=== PATIENT | female | born 1985 | race Caucasian/White ===

== ENCOUNTER 2020-05-23 07:37 | Outpatient (REF) | payer OTHER, MEDICAID, SELFPAY ==
[2020-05-25 05:53] LABS: COVID-19 Test Negative (Negative)
== END 2020-05-23 07:38 | disposition home or self-care (01) ==
LOC: HO.LAB 07:37
PROVIDERS: Visit Provider Internal Medicine
DX: Z20.828 Contact with and (suspected) exposure to other viral communicable diseases (principal)
CPT/HCPCS: 87635; C9803

== ENCOUNTER 2020-06-04 12:28 | Outpatient (REF) | payer OTHER, SELFPAY ==
[2020-06-04 13:15] LABS: COVID-19 Test Negative (Negative)
== END 2020-06-04 12:29 | disposition home or self-care (01) ==
LOC: HO.EMPCOV 12:28
PROVIDERS: PCP Nurse Practitioner Family; Visit Provider Internal Medicine
DX: Z20.828 Contact with and (suspected) exposure to other viral communicable diseases (principal)
CPT/HCPCS: 87635; C9803

== ENCOUNTER 2020-06-15 09:26 | Outpatient (REF) | payer OTHER, SELFPAY ==
[2020-06-15 10:08] LABS: COVID-19 Test Negative (Negative)
== END 2020-06-15 09:27 | disposition home or self-care (01) ==
LOC: HO.EMPCOV 09:26
PROVIDERS: Visit Provider Internal Medicine
DX: Z20.828 Contact with and (suspected) exposure to other viral communicable diseases (principal)
CPT/HCPCS: 87635; C9803

== ENCOUNTER 2020-07-13 06:28 | Outpatient (REF) | payer OTHER, SELFPAY ==
[2020-07-13 06:54] LABS: COVID-19 Test Negative (Negative)
== END 2020-07-13 06:29 | disposition home or self-care (01) ==
LOC: HO.EMPCOV 06:28
PROVIDERS: Visit Provider Internal Medicine
DX: Z20.828 Contact with and (suspected) exposure to other viral communicable diseases (principal)
CPT/HCPCS: 87635; C9803

== ENCOUNTER 2020-07-21 06:43 | Outpatient (REF) | payer OTHER, SELFPAY ==
[2020-07-21 07:10] LABS: COVID-19 Test Positive (Negative)
== END 2020-07-21 06:44 | disposition home or self-care (01) ==
LOC: HO.EMPCOV 06:43
PROVIDERS: Visit Provider Internal Medicine
DX: Z20.822 Contact with and (suspected) exposure to COVID-19 (principal)
CPT/HCPCS: 36415; 87635; C9803

== ENCOUNTER 2020-08-13 14:45 | Emergency (ER) | payer OTHER, MEDICAID, SELFPAY ==
[2020-08-13 18:01] VITALS: BP 135/67; PULSE 83; RESP 18; TEMP 37.3; O2SAT 100; BMI 33.9
--- NOTE | 2020-08-13 18:09 | ED_ITS ---
HPI - SOB/Dyspnea General Chief Complaint: Dyspnea Stated Complaint: sob Source: patient Mode of arrival: ambulatory Limitations: no limitations History of Present Illness HPI Narrative: 35-year-old female tested COVID positive on July 21, 2020 presents with exertional shortness of breath and palpitations. Stated that she was walking her office under shortness of breath did not resolve for approximately an hour. She works at [employer] [place] and was advised by multiple physicians to present to the emergency department for evaluation. Patient does not use control, does not have a history of cancer or blood clots, denies history of clotting factor deficiencies. MD elicited complaint: shortness of breath, pain with inspiration and chest pain Pertinent past history: other (COVID-19) Onset (ago): day(s) (Several) Context: recent illness Timing: intermittent Severity: moderate Exacerbating factors: exertion, coughing, inspiration and cold air Relieving factors: nothing Associated symptoms: denies other symptoms Treatment prior to arrival: none Related Data Home Medications Medication Instructions Recorded Confirmed carbamazepine 200 mg tablet mg PO 05/05/20 05/05/20 gabapentin 600 mg tablet 1,200 mg PO BEDTIME 05/05/20 05/05/20 Previous Rx's Medication Instructions Recorded cetirizine 10 mg tablet 10 mg PO DAILY #90 tab 07/06/20 Allergies Allergy/AdvReac Type Severity Reaction Status Date / Time No Known Allergies Allergy Verified 05/05/20 07:43 Review of Systems Review of Systems: Constitutional: No Fever, No Chills ENT/Mouth: No sore throat, No Rhinorrhea, No Swallowing Difficulty Eyes: No Eye Pain, No Swelling, No Redness Cardiovascular: Positive Chest Pain, positive SOB, No Orthopnea, no Edema Respiratory: Positive Cough, No Sputum, No Wheezing, positive dyspnea Gastrointestinal: No Nausea, No Vomiting, No Diarrhea, No abdominal Pain, No Hematochezia, No Melena Genitourinary: No Dysuria, No Urinary Frequency, No Hematuria Musculoskeletal: No joint pain, No Myalgias Skin: No Skin Lesions, No rash Neuro: No Weakness, No Numbness, No Dizziness, No Headache Psych: No Anxiety/Panic, No Depression Heme/Lymph: No Bruising, No Lymphadenopathy Endocrine: No Polyuria, No Polydipsia Yes all other systems are reviewed and are negative PMFSH Past Medical History Attestation statement: The following information was validated with the patient. Source: old records reviewed Medical History Trigeminal neuralgia Surgical History No pertinent past surgical history Family History Family History Father Diabetes mellitus Mother HTN (hypertension) Fibromyalgia Maternal Grandmother Zika virus disease Alzheimer's disease Dementia Maternal Grandfather No problems noted. Paternal Grandfather No problems noted. Paternal Grandmother No problems noted. Brother No problems noted. Brother No problems noted. Son No problems noted. Son No problems noted. Family/Other Breast cancer Social History Social History Alcohol intake: never Smoking Status: Never smoker Smoked in Last 30 Days: No Use of substances other than those prescribed or required for medical reasons: No Advance Directives: No Advance Directives Information Provided: No Physical Exam Vital Signs: Vital Signs: Last Vital Signs Temp 98.4 F 08/13/20 19:18 Pulse 81 08/13/20 19:18 Resp 18 08/13/20 19:18 BP 122/55 L 08/13/20 19:18 Pulse Ox 98 08/13/20 19:18 Body Mass Index 33.9 Appearance: Alert. Oriented X3. No acute distress. Eyes: Pupils equal, round and reactive to light. ENT: Pharynx normal. Neck: Normal inspection. Neck supple. CVS: Normal heart rate and rhythm. Pulses normal. Respiratory: No respiratory distress. Breath sounds normal. Abdomen: Soft and nontender. Skin: Skin warm and dry. Normal skin color. Normal skin turgor. Extremities: No lower extremity edema. Neuro: No motor deficit. No sensory deficit. Course Course Course Narrative: 35-year-old female presents with shortness of breath and palpitations with diaphoresis on exertion. Over the past several days, it has been more difficult for her to return to baseline RR after exertion. She was COVID positive on 07/21/2020. She is not , does not use oral contraceptives, does not have clotting factor deficiencies or blood dyscrasias. Plan of care is for CT to rule out PE. PE study is negative. Patient was advised follow-up with primary care physician. Patient verbalized understanding of and agrees plan of care discharge home. Reevaluation(s) Reevaluation #1: Labs still pending draw, EKG not completed at this time. Discussion with RN. Time: 19:11 MDM - SOB/Dyspnea Differential Diagnosis Differential diagnosis: Likely pneumonia and pulmonary embolism Medical Records Attestation: I reviewed the patient's medical records. Lab Data Attestation: I reviewed the patient's lab results. Result diagrams: 08/13/20 19:15 08/13/20 19:15 Labs: Lab Results 08/13/20 08/13/20 08/13/20 Range/Units 19:14 19:15 19:15 WBC 13.1 H (4.8-10.8) X10*3/uL RBC 4.17 L (4.20-5.50) X10*6/uL Hgb 11.5 L (12.0-16.0) g/dl Hct 35.2 L (37-47) % MCV 84.4 (80-98) fL MCH 27.6 (27.0-33.0) pg MCHC 32.7 (31.0-35.0) g/dl RDW 13.7 (11.0-16.0) % Plt Count 356 (160-400) X10*3/uL MPV 10.0 (9.4-12.3) fL Immature Gran % (Auto) 0.3 (0.0-0.4) % Neut % (Auto) 66.1 (45-73) % Lymph % (Auto) 24.2 (20-40) % [place] % (Auto) 6.0 (2-11) % Eos % (Auto) 3.0 (0-4) % Baso % (Auto) 0.4 (0-2) % Lymph # (Auto) 3.2 (1.2-4.9) X10*3/uL [place] # (Auto) 0.8 (0.1-1.2) X10*3/uL Eos # (Auto) 0.4 (0.0-0.4) X10*3/uL Baso # (Auto) 0.1 (0.0-0.2) X10*3/uL Abs Immat Gran (auto) 0.04 H (0.00-0.03) X10*3/uL Absolute Neuts (auto) 8.7 H (2.0-8.3) X10*3/uL Absolute Nucleated RBC 0.000 (0.0-0.012) X10*3/uL Nucleated RBC % (auto) 0.0 (0.0-0.2) /100WBC PT 12.8 (10.8-13.0) SEC INR 1.1 (0.9-1.1) APTT 38.9 H (24.1-38.0) SEC Sodium (135-145) mmol/L Potassium (3.3-5.1) mmol/l Chloride (96-108) mmol/L Carbon Dioxide (22-29) mmol/L Anion Gap (12-20) BUN (9-16) mg/dL Creatinine (0.5-1.4) mg/dL Estim Creat Clear Calc Estimated GFR Random Glucose (60-115) mg/dL Calcium (8.4-10.2) mg/dL Magnesium (1.6-2.6) mg/dL Troponin I High Sens (<3.5-17.0) ng/L Urine Color YELLOW Urine Appearance CLEAR Urine pH 6.0 (5.0-8.0) Ur Specific [place] 1.020 (1.005-1.025) Urine Protein NEG (NEG-TRACE) MG/DL Urine Glucose (UA) NEG (NEG) MG/DL Urine Ketones NEG (NEG) MG/DL Urine Blood NEG (NEG) Urine Nitrite NEG (NEG) Ur Leukocyte Esterase NEG (NEG) Urine Test NEGATIVE (NEGATIVE) 08/13/20 08/13/20 Range/Units 19:15 19:15 WBC (4.8-10.8) X10*3/uL RBC (4.20-5.50) X10*6/uL Hgb (12.0-16.0) g/dl Hct (37-47) % MCV (80-98) fL MCH (27.0-33.0) pg MCHC (31.0-35.0) g/dl RDW (11.0-16.0) % Plt Count (160-400) X10*3/uL MPV (9.4-12.3) fL Immature Gran % (Auto) (0.0-0.4) % Neut % (Auto) (45-73) % Lymph % (Auto) (20-40) % [place] % (Auto) (2-11) % Eos % (Auto) (0-4) % Baso % (Auto) (0-2) % Lymph # (Auto) (1.2-4.9) X10*3/uL [place] # (Auto) (0.1-1.2) X10*3/uL Eos # (Auto) (0.0-0.4) X10*3/uL Baso # (Auto) (0.0-0.2) X10*3/uL Abs Immat Gran (auto) (0.00-0.03) X10*3/uL Absolute Neuts (auto) (2.0-8.3) X10*3/uL Absolute Nucleated RBC (0.0-0.012) X10*3/uL Nucleated RBC % (auto) (0.0-0.2) /100WBC PT (10.8-13.0) SEC INR (0.9-1.1) APTT (24.1-38.0) SEC Sodium 138 (135-145) mmol/L Potassium 4.7 (3.3-5.1) mmol/l Chloride 104 (96-108) mmol/L Carbon Dioxide 25 (22-29) mmol/L Anion Gap 14 (12-20) BUN 8 L (9-16) mg/dL Creatinine 0.73 (0.5-1.4) mg/dL Estim Creat Clear Calc 127.4 Estimated GFR > 60 Random Glucose 104 (60-115) mg/dL Calcium 9.0 (8.4-10.2) mg/dL Magnesium 2.0 (1.6-2.6) mg/dL Troponin I High Sens < 3.5 (<3.5-17.0) ng/L Urine Color Urine Appearance Urine pH (5.0-8.0) Ur Specific [place] (1.005-1.025) Urine Protein (NEG-TRACE) MG/DL Urine Glucose (UA) (NEG) MG/DL Urine Ketones (NEG) MG/DL Urine Blood (NEG) Urine Nitrite (NEG) Ur Leukocyte Esterase (NEG) Urine Test (NEGATIVE) Imaging Data CT PE: Attestation: I personally reviewed and interpreted this imaging study as follows: Radiologist's impression: EXAMINATION: CT ANGIOGRAM OF THE CHEST WITH AND WITHOUT CONTRAST (CT PULMONARY ANGIOGRAM FOR PE) CLINICAL INFORMATION: Reason for Exam Shortness of breath, palpitations, recent COVID COMPARISON: None TECHNIQUE: Prior to contrast administration, noncontrast localization images were obtained. Subsequently, multidetector volumetric imaging was performed from the thoracic inlet to below the diaphragms following the administration of 71 mL Omnipaque 350 intravenous contrast. No contrast reaction reported Sagittal, coronal, and MIP oblique sagittal reformatted images were obtained on the CT workstation, uploaded to PACS, and reviewed. This CT examination was performed using dose optimization techniques as appropriate, variously including the following: *Automated exposure control *Adjustment of mA and/or kV according to patient size (this includes techniques or standardized protocols for targeted exams where dose is matched to indication/reason for exam; i.e. extremities or head) *Use of iterative reconstruction technique Total exam dose-length product 331 mGy-cm FINDINGS: QUALITY OF STUDY/CONTRAST BOLUS: Satisfactory. PULMONARY ARTERIES: No central or segmental pulmonary emboli. THORACIC AORTA: No aneurysm or dissection. LUNG: No focal consolidation, nodules or masses. PLEURA: No pleural effusion or pneumothorax. MEDIASTINUM: Normal heart size. No pericardial effusion. No hilar or mediastinal lymphadenopathy. No evidence of septal bowing or right heart strain. CHEST WALL/AXILLA: No axillary or internal mammary lymphadenopathy. OSSEOUS STRUCTURES: No acute or suspicious osseous abnormality. UPPER ABDOMEN: Unremarkable. No reflux of contrast into the hepatic veins to suggest elevated right heart pressures. CT/CT angio chest PE protocol IMPRESSION: No evidence of pulmonary emboli VTE: negative ECG Data Attestation: I personally reviewed and interpreted this ECG as follows: ECG interpretation date: 08/13/20 ECG interpretation time: 19:15 Prior ECG tracings: not available for review Interpretation: Vent. Rate : 077 BPM Atrial Rate : 077 BPM P-R Int : 128 ms QRS Dur : 094 ms QT Int : 364 ms P-R-T Axes : -18 -13 007 degrees QTc Int : 411 ms Normal sinus rhythm Minimal voltage criteria for LVH, may be normal variant Possible Anterior infarct , age undetermined Abnormal ECG No previous ECGs available Discharge Plan Discharge Clinical Impression: Exertional shortness of breath, Heart palpitations Patient Disposition: Home, Self-Care Instructions: Heart Palpitations (ED), Dyspnea (ED), COVID-19 (Coronavirus Disease 2019) (ED) Additional Instructions: You were evaluated for shortness of breath and palpitations on exertion. CT angio of the chest is negative for PE. The symptoms could be related to your positive COVID-19 diagnosis earlier in July. There are prolonged symptoms of fatigue, exertional shortness of breath reported in some patients. Please follow-up with primary care physician within the next week. If symptoms persist you may consider following up with Cardiology. Thank you for choosing this emergency department for evaluation. Please foll ow-up with primary care physician as needed. Return to the emergency department for any new, concerning, or worsening symptoms. Prescriptions: No Action cetirizine 10 mg tablet 10 mg PO DAILY Qty: 90 RF: 2 carbamazepine 200 mg tablet PO RF: 0 gabapentin 600 mg tablet 1,200 mg PO BEDTIME RF: 0 Stand Alone Forms: Work/School Release Interventions: ED Discharge Assessment Last Done: 08/13/20 22:26 Discharge Date/Time: 08/13/20 22:33
--- NOTE | 2020-08-13 18:19 | CT_ITS ---
EXAMINATION: CT ANGIOGRAM OF THE CHEST WITH AND WITHOUT CONTRAST (CT PULMONARY ANGIOGRAM FOR PE) CLINICAL INFORMATION: Reason for Exam Shortness of breath, palpitations, recent COVID COMPARISON: None TECHNIQUE: Prior to contrast administration, noncontrast localization images were obtained. Subsequently, multidetector volumetric imaging was performed from the thoracic inlet to below the diaphragms following the administration of 71 mL Omnipaque 350 intravenous contrast. No contrast reaction reported Sagittal, coronal, and MIP oblique sagittal reformatted images were obtained on the CT workstation, uploaded to PACS, and reviewed. This CT examination was performed using dose optimization techniques as appropriate, variously including the following: *Automated exposure control *Adjustment of mA and/or kV according to patient size (this includes techniques or standardized protocols for targeted exams where dose is matched to indication/reason for exam; i.e. extremities or head) *Use of iterative reconstruction technique Total exam dose-length product 331 mGy-cm FINDINGS: QUALITY OF STUDY/CONTRAST BOLUS: Satisfactory. PULMONARY ARTERIES: No central or segmental pulmonary emboli. THORACIC AORTA: No aneurysm or dissection. LUNG: No focal consolidation, nodules or masses. PLEURA: No pleural effusion or pneumothorax. MEDIASTINUM: Normal heart size. No pericardial effusion. No hilar or mediastinal lymphadenopathy. No evidence of septal bowing or right heart strain. CHEST WALL/AXILLA: No axillary or internal mammary lymphadenopathy. OSSEOUS STRUCTURES: No acute or suspicious osseous abnormality. UPPER ABDOMEN: Unremarkable. No reflux of contrast into the hepatic veins to suggest elevated right heart pressures. CT/CT angio chest PE protocol IMPRESSION: No evidence of pulmonary emboli VTE: negative
--- NOTE | 2020-08-13 18:19 | ECG_ITS ---
Test Reason : SOB Blood Pressure : / mmHG Vent. Rate : 077 BPM Atrial Rate : 077 BPM P-R Int : 128 ms QRS Dur : 094 ms QT Int : 364 ms P-R-T Axes : -18 -13 007 degrees QTc Int : 411 ms Normal sinus rhythm Minimal voltage criteria for LVH, may be normal variant Possible Anterior infarct , age undetermined Abnormal ECG No previous ECGs available Referred By: Hien Crowder Electronically Signed By:Alvarez Oakley
[2020-08-13 19:18] VITALS: BP 122/55; PULSE 81; RESP 18; TEMP 36.9; O2SAT 98
--- NOTE | 2020-08-13 19:18 | PC.NURSE ---
iv inserted, labs drawn, ekg performed, urine obtained
[2020-08-13 19:21] LABS: MANUAL DIFF FLAG NO
[2020-08-13 19:25] LABS: Glucose Urine UA NEG (NEG); Leukocyte Esterase Urine NEG (NEG); Nitrite Urine NEG (NEG); Urine Blood NEG (NEG); Urine Ketones NEG (NEG); Urine Protein NEG (NEG-TRACE)
[2020-08-13 19:27] LABS: Basophils Absolute Auto 0.1 X10*3/uL (0.0-0.2); Basophils Percent Auto 0.4 % (0-2); Eosinophils Absolute Auto 0.4 X10*3/uL (0.0-0.4); Hematocrit 35.2 % (37-47); Hemoglobin 11.5 g/dl (12.0-16.0); Imm Gran Abs Auto 0.04 X10*3/uL (0.00-0.03); Imm Gran Pct Auto 0.3 % (0.0-0.4); Lymphocytes Absolute Auto 3.2 X10*3/uL (1.2-4.9); Lymphocytes Percent Auto 24.2 % (20-40); Mean Corpuscular HGB Conc 32.7 g/dl (31.0-35.0); Mean Corpuscular Hemoglobin 27.6 pg (27.0-33.0); Mean Corpuscular Volume 84.4 fL (80-98); Monocytes Absolute Auto 0.8 X10*3/uL (0.1-1.2); Neutrophils Absolute Auto 8.7 X10*3/uL (2.0-8.3); Neutrophils Percent Auto 66.1 % (45-73); Platelet Count 356 X10*3/uL (160-400); Red Blood Count 4.17 X10*6/uL (4.20-5.50); Red Cell Distribution Width 13.7 % (11.0-16.0); White Blood Count 13.1 X10*3/uL (4.8-10.8)
[2020-08-13 19:30] LABS: INTERNATIONAL NORM RATIO 1.1 (0.9-1.1); Prothrombin Time 12.8 SEC (10.8-13.0)
[2020-08-13 19:32] LABS: Partial Thromboplastin Time 38.9 SEC (24.1-38.0)
[2020-08-13 19:39] LABS: Appearance Urine CLEAR; Color Urine YELLOW
[2020-08-13 19:56] LABS: Anion Gap 14 (12-20); Blood Urea Nitrogen 8 mg/dL (9-16); Carbon Dioxide 25 mmol/L (22-29); Chloride 104 mmol/L (96-108); Creatinine Clr Calc Pharmacy 127.4; Estimated Glomerular Filt Rate > 60; Glucose Random 104 mg/dL (60-115); Potassium 4.7 mmol/l (3.3-5.1); Sodium 138 mmol/L (135-145)
[2020-08-13 19:59] LABS: Troponin-I High Sensitivity < 3.5 ng/L (<3.5-17.0)
[2020-08-13] MEDS: iohexoL 350 MG/ML 100 ML INFUS..BTL IV (21:18)
[2020-08-13 22:13] LABS: UPreg QC Valid YES; Urine Pregnancy NEGATIVE (NEGATIVE)
== END 2020-08-13 22:33 | disposition home or self-care (01) ==
PROVIDERS: Nurse Practitioner Family; Emergency Provider Emergency Medicine; PCP Nurse Practitioner Family
DX: R06.02 Shortness of breath (principal); R00.2 Palpitations; Z86.16 Personal history of COVID-19; G50.0 Trigeminal neuralgia
CPT/HCPCS: 36415; 71275; 80048; 81003; 81025; 83735; 84484; 85025; 85610; 85730; 93005; 99284; Q9967

== ENCOUNTER 2020-10-06 16:37 | Outpatient (REF) | payer OTHER, MEDICAID, SELFPAY ==
[2020-10-06 17:17] LABS: Glucose Urine UA >=1000 MG/DL (NEG); Leukocyte Esterase Urine NEG (NEG); Nitrite Urine NEG (NEG); Urine Blood NEG (NEG); Urine Ketones NEG (NEG); Urine Protein NEG (NEG-TRACE)
[2020-10-06 17:21] LABS: Appearance Urine CLEAR; Color Urine STRAW
[2020-10-06 17:38] LABS: Bacteria Urine 1+ /LPF; RBC Urine 0-2 /HPF (0); Squamous Epithelial Cell Urine 2+ /LPF; WBC Urine 0-2 /HPF (0-4)
[2020-10-06 17:45] LABS: TSH reflex Free T4 0.85 uIU/mL (0.32-4.0)
[2020-10-06 18:08] LABS: Alanine Aminotransferase 21 U/L (0-31); Albumin Level 4.3 g/dL (3.5-5.0); Alkaline Phosphatase 172 U/L (39-117); Anion Gap 18 (12-20); Aspartate Amino Transferase 18 U/L (5-31); Bilirubin Total 0.8 mg/dL (0.0-1.0); Blood Urea Nitrogen 13 mg/dL (9-16); Calcium 9.2 mg/dL (8.4-10.2); Carbon Dioxide 24 mmol/L (22-29); Chloride 96 mmol/L (96-108); Cholesterol 238 mg/dL; Estimated Glomerular Filt Rate > 60; HDL Cholesterol 53 mg/dL; LDL Cholesterol Calculated 123 mg/dl; Potassium 4.7 mmol/L (3.3-5.1); Sodium 133 mmol/L (135-145); Total Protein 7.1 g/dL (6.5-8.0); Triglycerides 311 mg/dL
[2020-10-06 19:37] LABS: Glucose Fasting 532 mg/dL (60-99)
[2020-10-07 08:11] LABS: Estimated Average Glucose 246 mg/dL; Hemoglobin A1c % 10.2 %
== END 2020-10-06 16:38 | disposition home or self-care (01) ==
LOC: HO.LAB 16:37
PROVIDERS: PCP Nurse Practitioner Family; Visit Provider Nurse Practitioner Family
DX: Z00.00 Encounter for general adult medical examination without abnormal findings (principal); R35.0 Frequency of micturition; E11.9 Type 2 diabetes mellitus without complications
CPT/HCPCS: 36415; 80048; 80053; 80061; 81001; 83036; 84443; 87086

== ENCOUNTER 2020-10-06 18:41 | Emergency (ER) | payer OTHER, MEDICAID, SELFPAY ==
[2020-10-06 19:34] VITALS: BP 110/62; PULSE 97; RESP 16; TEMP 36.8; O2SAT 96; BMI 33.9
[2020-10-06 19:48] LABS: Glucose, Whole Blood 526 mg/dL (60-115)
[2020-10-06 20:57] VITALS: BP 129/54; PULSE 100; RESP 18; TEMP 36.5; O2SAT 98
[2020-10-06 21:52] LABS: MANUAL DIFF FLAG NO
[2020-10-06 21:58] LABS: Basophils Percent Auto 0.3 % (0-2); Eosinophils Absolute Auto 0.1 X10*3/uL (0.0-0.4); Eosinophils Percent Auto 0.5 % (0-4); Glucose Urine UA >=1000 MG/DL (NEG); Hematocrit 35.3 % (37-47); Hemoglobin 11.8 g/dl (12.0-16.0); Imm Gran Abs Auto 0.06 X10*3/uL (0.00-0.03); Imm Gran Pct Auto 0.6 % (0.0-0.4); Leukocyte Esterase Urine NEG (NEG); Lymphocytes Percent Auto 27.7 % (20-40); Mean Corpuscular HGB Conc 33.4 g/dl (31.0-35.0); Mean Corpuscular Hemoglobin 28.2 pg (27.0-33.0); Mean Corpuscular Volume 84.4 fL (80-98); Mean Platelet Volume 10.5 fL (9.4-12.3); Monocytes Absolute Auto 0.7 X10*3/uL (0.1-1.2); Monocytes Percent Auto 6.3 % (2-11); Neutrophils Absolute Auto 6.9 X10*3/uL (2.0-8.3); Neutrophils Percent Auto 64.6 % (45-73); Nitrite Urine NEG (NEG); Platelet Count 287 X10*3/uL (160-400); Red Blood Count 4.18 X10*6/uL (4.20-5.50); Red Cell Distribution Width 14.5 % (11.0-16.0); Specific Gravity - Urine <= 1.005 (1.005-1.025); Urine Blood NEG (NEG); Urine Ketones NEG (NEG); Urine Protein NEG (NEG-TRACE); White Blood Count 10.7 X10*3/uL (4.8-10.8)
[2020-10-06 22:00] LABS: Appearance Urine CLEAR; Color Urine YELLOW
[2020-10-06 22:05] LABS: Bacteria Urine TRACE /LPF; RBC Urine 0-2 /HPF (0); Squamous Epithelial Cell Urine 1+ /LPF; WBC Urine 0-2 /HPF (0-4)
[2020-10-06 22:07] LABS: Acetone, serum QL Negative (Negative)
[2020-10-06 22:08] LABS: UPreg QC Valid YES; Urine Pregnancy NEGATIVE (NEGATIVE)
[2020-10-06 22:14] LABS: Alanine Aminotransferase 21 U/L (0-31); Albumin Level 4.1 g/dL (3.5-5.0); Alkaline Phosphatase 173 U/L (39-117); Aspartate Amino Transferase 17 U/L (5-31); Bilirubin Direct 0.2 mg/dL (0.0-0.5); Bilirubin Total 0.8 mg/dL (0.0-1.0); Total Protein 6.8 g/dL (6.5-8.0)
--- NOTE | 2020-10-06 22:24 | ED.GENADULT ---
HPI - General Adult General Chief complaint: Recheck/Abnormal Lab/Rx Stated complaint: abnormal labs Time Seen by Provider: 10/06/20 21:17 Source: patient Mode of arrival: ambulatory Limitations: no limitations History of Present Illness HPI narrative: Patient comes to the emergency room complaining of high blood sugar. Patient states for the last week she has been complaining of significant thirst, drinking a lot of water, urinating more and blurry vision. Patient had blood work done as an outpatient, she was told that her glucose was elevated and needed to come to emergency room. Related Data Home Medications Medication Instructions Recorded Confirmed carbamazepine 200 mg tablet mg PO 05/05/20 05/05/20 gabapentin 600 mg tablet 1,200 mg PO BEDTIME 05/05/20 05/05/20 Previous Rx's Medication Instructions Recorded cetirizine 10 mg tablet 10 mg PO DAILY #90 tab 07/06/20 albuterol sulfate 90 mcg/actuation 1 inh INHALATION Q4-6H PRN 30 Days 08/22/20 breath activated powder inhaler #1 ea albuterol sulfate 90 mcg/actuation 1 inh INHALATION QID PRN 30 Days 08/27/20 aerosol inhaler #8.5 g albuterol sulfate 90 mcg/actuation 1 inh INHALATION QID PRN 30 Days 08/27/20 aerosol inhaler #8.5 g prednisone 50 mg tablet 50 mg PO DAILY 7 Days #7 tab 10/01/20 metformin 500 mg PO BID #60 tab 10/07/20 Allergies Allergy/AdvReac Type Severity Reaction Status Date / Time No Known Allergies Allergy Verified 09/07/20 13:11 Review of Systems Review of Systems: Constitutional : No Weight loss, No Fever, No Chills, No Night Sweats, No Fatigue, No Malaise ENT/Mouth : No Hearing loss, No Ear Pain, No Nasal Congestion, No Sinus Pain, No Hoarseness, No sore throat, No Rhinorrhea, No Swallowing Difficulty Eyes: No Eye Pain, No Swelling, No Redness, No Foreign Body, No Discharge, complaining of blurry vision bilaterally Cardiovascular : No Chest Pain, No SOB, No Dyspnea on Exertion, No Orthopnea, No Edema, No Palpitations Respiratory : No Cough, No Sputum, No Wheezing, No Smoke Exposure, No Dyspnea Gastrointestinal : No Nausea, No Vomiting, No Diarrhea, No Constipation, No abdominal Pain, No Hematochezia, No Melena Genitourinary : no irregular bleeding, No Dysuria, No Urinary Frequency, No Hematuria, No Urinary Incontinence, No Urgency, No Flank Pain, No Urinary Flow Changes, No Hesitancy Musculoskeletal : No joint pain, No Myalgias, No Joint Swelling Skin : No Skin Lesions, No rash Neuro : No Weakness, No Numbness, No Paresthesias, No Loss of Consciousness, No Dizziness, No Headache Psych : No Anxiety/Panic, No Depression, No SI/HI/AH/VH, No Social Issues, Heme/Lymph: No Bruising, No Bleeding,No Lymphadenopathy Endocrine : complaining of polyuria, polydipsia PMFSH Past Medical History Medical History Anemia Lumbago Trigeminal neuralgia Vitamin D deficiency Surgical History No pertinent past surgical history Family History Family History Father Diabetes mellitus Mother HTN (hypertension) Fibromyalgia Maternal Grandmother Zika virus disease Alzheimer's disease Dementia Maternal Grandfather No problems noted. Paternal Grandfather No problems noted. Paternal Grandmother No problems noted. Brother No problems noted. Brother No problems noted. Son No problems noted. Son No problems noted. Family/Other Breast cancer Social History Social History Alcohol intake: current Alcohol intake frequency: holidays/special occasions only Smoking Status: Never smoker Use of substances other than those prescribed or required for medical reasons: No Advance Directives: No Advance Directives Information Provided: Yes Physical Exam Vital Signs: Vital Signs: Last Vital Signs Temp 97.7 F 10/06/20 20:57 Pulse 98 10/07/20 01:21 Resp 15 10/07/20 01:21 BP 113/43 L 10/07/20 01:21 Pulse Ox 99 10/07/20 01:21 Body Mass Index 33.9 Appearance: Alert. Oriented X3. No acute distress. Eyes: Pupils equal, round and reactive to light. ENT: Pharynx normal. Neck: Normal inspection. Neck supple. No lymph nodes noted. No crepitus CVS: Normal heart rate and rhythm. Pulses normal. Normal S1 and S2 Respiratory: No respiratory distress. Breath sounds normal. No Wheezing. No rales Abdomen: Soft and nontender. No rigidity. No distention. good BS x4 Skin: Skin warm and dry. Normal skin color. Normal skin turgor. Extremities: No lower extremity edema. No lower extremity edema. No Lacerations. No Rash Neuro: Oriented X 3. No motor deficit. No sensory deficit. Moving all extermities. No slurred speech. Course Course Course Narrative: Patient was diagnosed with new onset diabetes. At this time, patient will not be started on insulin. Patient will be started only on metformin, patient needs to have close follow-up with her primary care physician. Medical Decision Making Lab Data Result diagrams: 10/06/20 21:44 Labs: Lab Results 10/06/20 10/06/20 10/06/20 Range/Units 19:43 21:44 21:44 WBC 10.7 (4.8-10.8) X10*3/uL RBC 4.18 L (4.20-5.50) X10*6/uL Hgb 11.8 L (12.0-16.0) g/dl Hct 35.3 L (37-47) % MCV 84.4 (80-98) fL MCH 28.2 (27.0-33.0) pg MCHC 33.4 (31.0-35.0) g/dl RDW 14.5 (11.0-16.0) % Plt Count 287 (160-400) X10*3/uL MPV 10.5 (9.4-12.3) fL Immature Gran % (Auto) 0.6 H (0.0-0.4) % Neut % (Auto) 64.6 (45-73) % Lymph % (Auto) 27.7 (20-40) % [place] % (Auto) 6.3 (2-11) % Eos % (Auto) 0.5 (0-4) % Baso % (Auto) 0.3 (0-2) % Lymph # (Auto) 3.0 (1.2-4.9) X10*3/uL [place] # (Auto) 0.7 (0.1-1.2) X10*3/uL Eos # (Auto) 0.1 (0.0-0.4) X10*3/uL Baso # (Auto) 0.0 (0.0-0.2) X10*3/uL Abs Immat Gran (auto) 0.06 H (0.00-0.03) X10*3/uL Absolute Neuts (auto) 6.9 (2.0-8.3) X10*3/uL Absolute Nucleated RBC 0.000 (0.0-0.012) X10*3/uL Nucleated RBC % (auto) 0.0 (0.0-0.2) /100WBC POC Glucose 526 H* (60-115) mg/dL Total Bilirubin 0.8 (0.0-1.0) mg/dL Direct Bilirubin 0.2 (0.0-0.5) mg/dL AST 17 (5-31) U/L ALT 21 (0-31) U/L Alkaline Phosphatase 173 H (39-117) U/L Total Protein 6.8 (6.5-8.0) g/dL Albumin 4.1 (3.5-5.0) g/dL Urine Color Urine Appearance Urine pH (5.0-8.0) Ur Specific [place] (1.005-1.025) Urine Protein (NEG-TRACE) MG/DL Urine Glucose (UA) (NEG) MG/DL Urine Ketones (NEG) MG/DL Urine Blood (NEG) Urine Nitrite (NEG) Ur Leukocyte Esterase (NEG) Urine RBC (0) /HPF Urine WBC (0-4) /HPF Ur Squamous Epith Cells /LPF Urine Bacteria /LPF Urine Test (NEGATIVE) Acetone, Qual Negative (Negative) 10/06/20 10/06/20 10/06/20 Range/Units 21:44 21:44 23:30 WBC (4.8-10.8) X10*3/uL RBC (4.20-5.50) X10*6/uL Hgb (12.0-16.0) g/dl Hct (37-47) % MCV (80-98) fL MCH (27.0-33.0) pg MCHC (31.0-35.0) g/dl RDW (11.0-16.0) % Plt Count (160-400) X10*3/uL MPV (9.4-12.3) fL Immature Gran % (Auto) (0.0-0.4) % Neut % (Auto) (45-73) % Lymph % (Auto) (20-40) % [place] % (Auto) (2-11) % Eos % (Auto) (0-4) % Baso % (Auto) (0-2) % Lymph # (Auto) (1.2-4.9) X10*3/uL [place] # (Auto) (0.1-1.2) X10*3/uL Eos # (Auto) (0.0-0.4) X10*3/uL Baso # (Auto) (0.0-0.2) X10*3/uL Abs Immat Gran (auto) (0.00-0.03) X10*3/uL Absolute Neuts (auto) (2.0-8.3) X10*3/uL Absolute Nucleated RBC (0.0-0.012) X10*3/uL Nucleated RBC % (auto) (0.0-0.2) /100WBC POC Glucose 397 H* (60-115) mg/dL Total Bilirubin (0.0-1.0) mg/dL Direct Bilirubin (0.0-0.5) mg/dL AST (5-31) U/L ALT (0-31) U/L Alkaline Phosphatase (39-117) U/L Total Protein (6.5-8.0) g/dL Albumin (3.5-5.0) g/dL Urine Color YELLOW Urine Appearance CLEAR Urine pH 6.0 (5.0-8.0) Ur Specific [place] <= 1.005 (1.005-1.025) Urine Protein NEG (NEG-TRACE) MG/DL Urine Glucose (UA) >=1000 H (NEG) MG/DL Urine Ketones NEG (NEG) MG/DL Urine Blood NEG (NEG) Urine Nitrite NEG (NEG) Ur Leukocyte Esterase NEG (NEG) Urine RBC 0-2 (0) /HPF Urine WBC 0-2 (0-4) /HPF Ur Squamous Epith Cells 1+ /LPF Urine Bacteria TRACE /LPF Urine Test NEGATIVE (NEGATIVE) Acetone, Qual (Negative) 10/07/20 10/07/20 Range/Units 00:55 01:55 WBC (4.8-10.8) X10*3/uL RBC (4.20-5.50) X10*6/uL Hgb (12.0-16.0) g/dl Hct (37-47) % MCV (80-98) fL MCH (27.0-33.0) pg MCHC (31.0-35.0) g/dl RDW (11.0-16.0) % Plt Count (160-400) X10*3/uL MPV (9.4-12.3) fL Immature Gran % (Auto) (0.0-0.4) % Neut % (Auto) (45-73) % Lymph % (Auto) (20-40) % [place] % (Auto) (2-11) % Eos % (Auto) (0-4) % Baso % (Auto) (0-2) % Lymph # (Auto) (1.2-4.9) X10*3/uL [place] # (Auto) (0.1-1.2) X10*3/uL Eos # (Auto) (0.0-0.4) X10*3/uL Baso # (Auto) (0.0-0.2) X10*3/uL Abs Immat Gran (auto) (0.00-0.03) X10*3/uL Absolute Neuts (auto) (2.0-8.3) X10*3/uL Absolute Nucleated RBC (0.0-0.012) X10*3/uL Nucleated RBC % (auto) (0.0-0.2) /100WBC POC Glucose 317 H 282 H (60-115) mg/dL Total Bilirubin (0.0-1.0) mg/dL Direct Bilirubin (0.0-0.5) mg/dL AST (5-31) U/L ALT (0-31) U/L Alkaline Phosphatase (39-117) U/L Total Protein (6.5-8.0) g/dL Albumin (3.5-5.0) g/dL Urine Color Urine Appearance Urine pH (5.0-8.0) Ur Specific [place] (1.005-1.025) Urine Protein (NEG-TRACE) MG/DL Urine Glucose (UA) (NEG) MG/DL Urine Ketones (NEG) MG/DL Urine Blood (NEG) Urine Nitrite (NEG) Ur Leukocyte Esterase (NEG) Urine RBC (0) /HPF Urine WBC (0-4) /HPF Ur Squamous Epith Cells /LPF Urine Bacteria /LPF Urine Test (NEGATIVE) Acetone, Qual (Negative) Discharge Plan Discharge Clinical Impression: Diabetes mellitus, new onset Patient Disposition: Home, Self-Care Instructions: Type 2 Diabetes in Adults: New Diagnosis (ED), Meal Planning with the Plate Method (DC), Diabetes and Exercise (ED) Additional Instructions: Please follow-up with your primary care physician tomorrow. If you have any worsening or new symptoms, please return to the emergency room or call 911 Prescriptions: New metformin 500 mg tablet 500 mg PO BID Qty: 60 RF: 0 No Action cetirizine 10 mg tablet 10 mg PO DAILY Qty: 90 RF: 2 albuterol sulfate 90 mcg/actuation aerosol powdr breath activated 1 inh inhalation Q4-6H PRN (Reason: shortness of breath or wheezing) 30 Days Qty: 1 RF: 1 albuterol sulfate [ProAir HFA] 90 mcg/actuation HFA aerosol inhaler 1 inh inhalation QID PRN (Reason: shortness of breath or wheezing) 30 Days Qty: 8.5 RF: 2 albuterol sulfate [Ventolin HFA] 90 mcg/actuation HFA aerosol inhaler 1 inh inhalation QID PRN (Reason: shortness of breath or wheezing) 30 Days Qty: 8.5 RF: 2 prednisone 50 mg tablet 50 mg PO DAILY 7 Days Qty: 7 RF: 0 carbamazepine 200 mg tablet PO RF: 0 gabapentin 600 mg tablet 1,200 mg PO BEDTIME RF: 0
[2020-10-06 23:36] LABS: Glucose, Whole Blood 397 mg/dL (60-115)
[2020-10-06] MEDS: 0.9 % Sodium Chloride 1,000 ML 999 ML IVCONT (23:58)
[2020-10-06] MEDS: Insulin Regular, Human 100 UNIT/ML 3 ML VIAL SUBCUT (23:58)
[2020-10-07] VITALS: BP 103/50; PULSE 103; RESP 18; O2SAT 100
--- NOTE | 2020-10-07 00:58 | PC.NURSE ---
bedside glucose 317- Dr Atkins aware and will be ordering more insulin.
[2020-10-07 00:59] LABS: Glucose, Whole Blood 317 mg/dL (60-115)
[2020-10-07] MEDS: Insulin Regular, Human 100 UNIT/ML 3 ML VIAL IVPUSH (01:13)
[2020-10-07] MEDS: 0.9 % Sodium Chloride 1,000 ML 999 ML IVCONT (01:13)
[2020-10-07 01:21] VITALS: BP 113/43; PULSE 98; RESP 15; O2SAT 99
[2020-10-07 01:59] LABS: Glucose, Whole Blood 282 mg/dL (60-115)
[2020-10-07 03:16] VITALS: BP 110/50; PULSE 89; RESP 16; O2SAT 98
[2020-10-07 08:11] LABS: Estimated Average Glucose 249 mg/dL; Hemoglobin A1c % 10.3 %
== END 2020-10-07 03:19 | disposition home or self-care (01) ==
PROVIDERS: Emergency Provider Emergency Medicine; PCP Nurse Practitioner Family
DX: R79.89 Other specified abnormal findings of blood chemistry (principal); E13.9 Other specified diabetes mellitus without complications; R35.0 Frequency of micturition; Z83.3 Family history of diabetes mellitus; Z79.899 Other long term (current) drug therapy
CPT/HCPCS: 36415; 80076; 81001; 81025; 82009; 82947; 83036; 85025; 96360; 96372; 96374; 96375; 99284

== ENCOUNTER 2021-02-10 11:22 | Outpatient (REF) | payer OTHER, MEDICAID, SELFPAY ==
[2021-02-10 12:49] LABS: Estimated Average Glucose 128 mg/dL; Hemoglobin A1c % 6.1 %
[2021-02-10 12:51] LABS: Glucose Urine UA NEG (NEG); Leukocyte Esterase Urine TRACE (NEG); Nitrite Urine NEG (NEG); Urine Blood NEG (NEG); Urine Ketones NEG (NEG); Urine Protein NEG (NEG-TRACE)
[2021-02-10 12:53] LABS: Appearance Urine HAZY; Color Urine YELLOW
[2021-02-10 13:01] LABS: Bacteria Urine 2+ /LPF; Calcium Phosphate Crystals Ur TRACE /LPF; RBC Urine 0-2 /HPF (0); Squamous Epithelial Cell Urine 2+ /LPF
[2021-02-10 13:15] LABS: Alanine Aminotransferase 13 U/L (0-31); Albumin Level 4.3 g/dL (3.5-5.0); Alkaline Phosphatase 125 U/L (39-117); Anion Gap 11 (12-20); Aspartate Amino Transferase 21 U/L (5-31); Bilirubin Total 0.5 mg/dL (0.0-1.0); Blood Urea Nitrogen 9 mg/dL (9-16); Calcium 9.3 mg/dL (8.4-10.2); Carbon Dioxide 26 mmol/L (22-29); Chloride 105 mmol/L (96-108); Cholesterol 165 mg/dL; Estimated Glomerular Filt Rate > 60; Glucose Fasting 89 mg/dL (60-99); HDL Cholesterol 38 mg/dL; LDL Cholesterol Calculated 112 mg/dl; Potassium 4.2 mmol/L (3.3-5.1); Sodium 138 mmol/L (135-145); Total Protein 7.3 g/dL (6.5-8.0); Triglycerides 78 mg/dL
[2021-02-10 13:23] LABS: Creatinine Urine 139.62 mg/dL; Microalbum/Creatinine Ratio Ur 5.7 ug/mg cr
== END 2021-02-10 11:23 | disposition home or self-care (01) ==
LOC: HO.LAB 11:22
PROVIDERS: PCP Nurse Practitioner Family; Visit Provider Nurse Practitioner Family
DX: E11.9 Type 2 diabetes mellitus without complications (principal); R35.0 Frequency of micturition
CPT/HCPCS: 36415; 80053; 80061; 81001; 82043; 83036

== ENCOUNTER 2021-04-13 02:01 | Emergency (ER) | payer OTHER, MEDICAID, SELFPAY ==
[2021-04-13 02:07] VITALS: BMI 31.6
[2021-04-13 02:10] VITALS: BP 115/69; PULSE 87; RESP 18; TEMP 36.6; O2SAT 98
--- NOTE | 2021-04-13 02:17 | ED_ITS ---
HPI - Wound/Laceration General Chief Complaint: Wound/Laceration Stated Complaint: Lac Time Seen by Provider: 04/13/21 02:17 Source: patient Mode of arrival: ambulatory Limitations: no limitations History of Present Illness HPI narrative: Patient got superficial laceration on the upper lip after the [employer] picture frame fell while she is asleep and hit the lip, no other injuries Related Data Home Medications Medication Instructions Recorded Confirmed carbamazepine 200 mg tablet mg PO 05/05/20 12/23/20 gabapentin 600 mg tablet 1,200 mg PO BEDTIME 05/05/20 12/23/20 Previous Rx's Medication Instructions Recorded cetirizine 10 mg tablet 10 mg PO DAILY #90 tab 07/06/20 albuterol sulfate 90 mcg/actuation 1 inh INHALATION Q4-6H PRN 30 Days 08/22/20 breath activated powder inhaler #1 ea albuterol sulfate 90 mcg/actuation 1 inh INHALATION QID PRN 30 Days 08/27/20 aerosol inhaler (ProAir HFA) #8.5 g albuterol sulfate 90 mcg/actuation 1 inh INHALATION QID PRN 30 Days 08/27/20 aerosol inhaler (Ventolin HFA) #8.5 g alcohol swabs 1 pad TOPICAL BID #100 ea 10/07/20 blood-glucose meter (FreeStyle #1 ea 10/07/20 Lite Meter) fluticasone propionate 45 2 puff PO BID 30 Days #8 g 11/10/20 mcg-salmeterol 21 mcg/actuation HFA inhaler (Advair HFA) blood sugar diagnostic (FreeStyle 1 strip MISCELLANEOUS BID 50 Days 01/05/21 Lite Strips) #100 strip lancets 28 gauge (FreeStyle 28 gauge TOPICAL BID 50 Days #100 01/07/21 Lancets) cap metformin 500 mg tablet,extended 500 mg PO BID 90 Days #180 tab 02/24/21 release 24hr Allergies Allergy/AdvReac Type Severity Reaction Status Date / Time No Known Allergies Allergy Verified 10/08/20 17:40 Review of Systems Review of Systems: Yes all other systems are reviewed and are negative [facility] Past Medical History Medical History Anemia Lumbago Trigeminal neuralgia Vitamin D deficiency Surgical History No pertinent past surgical history Family History Family History Father Diabetes mellitus Mother HTN (hypertension) Fibromyalgia Maternal Grandmother Zika virus disease Alzheimer's disease Dementia Maternal Grandfather No problems noted. Paternal Grandfather No problems noted. Paternal Grandmother No problems noted. Brother No problems noted. Brother No problems noted. Son No problems noted. Son No problems noted. Family/Other Breast cancer Social History Social History Alcohol intake: current Alcohol intake frequency: holidays/special occasions only Advance Directives: No Advance Directives Information Provided: No Patient : No Physical Exam Vital Signs: Vital Signs: Last Vital Signs Temp 98 F 04/13/21 02:10 Pulse 87 04/13/21 02:10 Resp 18 04/13/21 02:10 BP 115/69 04/13/21 02:10 Pulse Ox 98 04/13/21 02:10 Body Mass Index 31.6 HENMT: Face images: 1. 2 cm long superficial laceration Mouth: Normal oral and palatal mucosa present Procedures Laceration Laceration 1: Site: lip Side (If applicable): left Size (cm): 2 Description: linear Depth: simple, single layer Skin layer closed with: other (Dermabond) Discharge Plan Discharge Clinical Impression: Laceration Patient Disposition: Home, Self-Care Instructions: Facial Laceration (ED) Additional Instructions: Local care as advised Prescriptions: No Action cetirizine 10 mg tablet 10 mg PO DAILY Qty: 90 RF: 2 albuterol sulfate 90 mcg/actuation aerosol powdr breath activated 1 inh inhalation Q4-6H PRN (Reason: shortness of breath or wheezing) 30 Days Qty: 1 RF: 1 albuterol sulfate [ProAir HFA] 90 mcg/actuation HFA aerosol inhaler 1 inh inhalation QID PRN (Reason: shortness of breath or wheezing) 30 Days Qty: 8.5 RF: 2 albuterol sulfate [Ventolin HFA] 90 mcg/actuation HFA aerosol inhaler 1 inh inhalation QID PRN (Reason: shortness of breath or wheezing) 30 Days Qty: 8.5 RF: 2 (DME) blood-glucose meter [FreeStyle Lite Meter] Kit See Rx Instructions .ROUTE .MEDSUPPLY Qty: 1 RF: 0 alcohol swabs Pads, Medicated 1 pad topical BID Qty: 100 RF: 1 fluticasone propion-salmeterol [Advair HFA] 45-21 mcg/actuation HFA aerosol inhaler 2 puff PO BID 30 Days Qty: 8 RF: 2 blood sugar diagnostic [FreeStyle Lite Strips] Strip 1 strip miscellaneous BID 50 Days Qty: 100 RF: 2 lancets [FreeStyle Lancets] 28 gauge misc 28 gauge topical BID 50 Days Qty: 100 RF: 1 metformin 500 mg tablet extended release 24hr 500 mg PO BID 90 Days Qty: 180 RF: 1 carbamazepine 200 mg tablet PO RF: 0 gabapentin 600 mg tablet 1,200 mg PO BEDTIME RF: 0
--- NOTE | 2021-04-13 02:39 | PC.NURSE ---
pt upper lip lac well approximated, no drainage or bleeding noted. pt states he tooth is loose, no bleeding and no discoloration.
== END 2021-04-13 02:42 | disposition home or self-care (01) ==
PROVIDERS: Emergency Provider Internal Medicine; PCP Nurse Practitioner Family
DX: S01.511A Laceration without foreign body of lip, initial encounter (principal); Y28.9XXA Contact with unspecified sharp object, undetermined intent, initial encounter; Y93.9 Activity, unspecified; Y92.9 Unspecified place or not applicable; Y99.9 Unspecified external cause status; Z79.899 Other long term (current) drug therapy
CPT/HCPCS: 99283; 99284

== ENCOUNTER 2021-04-18 19:05 | Emergency (ER) | payer OTHER, MEDICAID, SELFPAY ==
--- NOTE | ~2021-04-18 | XR_ITS ---
EXAMINATION: X-RAY LEFT HAND AND WRIST CLINICAL INFORMATION: Pain after punching headboard. COMPARISON: No similar priors. TECHNIQUE: 3 views were obtained. FINDINGS: There is a comminuted fracture within the head of the fifth metacarpal bone without significant displacement or angulation. No other fractures. Joint spaces are maintained. No radiopaque foreign bodies. XR/XR hand wrist LT IMPRESSION: Comminuted fracture of the head of the fifth metacarpal bone without significant displacement.
[2021-04-18 20:36] VITALS: BP 101/50; PULSE 91; RESP 18; TEMP 36.5; O2SAT 100; BMI 30.5
--- NOTE | 2021-04-18 21:10 | ED.EXTPRO ---
HPI - Extremity Problem General Chief complaint: Extremity Injury, Upper Stated complaint: hand inj Time Seen by Provider: 04/18/21 21:08 Source: patient Mode of arrival: ambulatory History of Present Illness HPI Narrative: 35-year-old female without significant past medical history presents after punching the headboard of her bed and then it for rinsing significant left hand pain maximal at the 5th MCP. Related Data Home Medications Medication Instructions Recorded Confirmed carbamazepine 200 mg tablet mg PO 05/05/20 04/14/21 gabapentin 600 mg tablet 1,200 mg PO BEDTIME 05/05/20 04/14/21 Previous Rx's Medication Instructions Recorded cetirizine 10 mg tablet 10 mg PO DAILY #90 tab 07/06/20 albuterol sulfate 90 mcg/actuation 1 inh INHALATION Q4-6H PRN 30 Days 08/22/20 breath activated powder inhaler #1 ea albuterol sulfate 90 mcg/actuation 1 inh INHALATION QID PRN 30 Days 08/27/20 aerosol inhaler (ProAir HFA) #8.5 g albuterol sulfate 90 mcg/actuation 1 inh INHALATION QID PRN 30 Days 08/27/20 aerosol inhaler (Ventolin HFA) #8.5 g alcohol swabs 1 pad TOPICAL BID #100 ea 10/07/20 blood-glucose meter (FreeStyle #1 ea 10/07/20 Lite Meter) fluticasone propionate 45 2 puff PO BID 30 Days #8 g 11/10/20 mcg-salmeterol 21 mcg/actuation HFA inhaler (Advair HFA) blood sugar diagnostic (FreeStyle 1 strip MISCELLANEOUS BID 50 Days 01/05/21 Lite Strips) #100 strip lancets 28 gauge (FreeStyle 28 gauge TOPICAL BID 50 Days #100 01/07/21 Lancets) cap metformin 500 mg tablet,extended 500 mg PO BID 90 Days #180 tab 02/24/21 release 24hr penicillin V potassium 500 mg 500 mg PO QID 7 Days #28 tab 04/14/21 tablet Allergies Allergy/AdvReac Type Severity Reaction Status Date / Time No Known Allergies Allergy Verified 04/18/21 21:07 Review of Systems Review of Systems: Pertinent positives and negatives as stated in HPI 10 point review of systems is otherwise negative. PMFSH Past Medical History Source: nursing notes reviewed Medical History Anemia Lumbago Trigeminal neuralgia Vitamin D deficiency Surgical History No pertinent past surgical history Family History Family History Father Diabetes mellitus Mother HTN (hypertension) Fibromyalgia Maternal Grandmother Zika virus disease Alzheimer's disease Dementia Maternal Grandfather No problems noted. Paternal Grandfather No problems noted. Paternal Grandmother No problems noted. Brother No problems noted. Brother No problems noted. Son No problems noted. Son No problems noted. Family/Other Breast cancer Social History Social History Alcohol intake: current Alcohol intake frequency: holidays/special occasions only Advance Directives: No Advance Directives Information Provided: No Physical Exam Vital Signs: Vital Signs: Last Vital Signs Temp 97.7 F 04/18/21 20:36 Pulse 91 04/18/21 20:36 Resp 18 04/18/21 20:36 BP 101/50 L 04/18/21 20:36 Pulse Ox 100 04/18/21 20:36 Body Mass Index 30.5 VITAL SIGNS: Reviewed. GENERAL: Well developed, well nourished, in no acute distress. HEAD: Normocephalic/atraumatic EYES: PERRLA, EOMI OROPHARYNX: no oral lesions noted, posterior pharynx clear LUNGS: Normal breath sounds. No adventitious sounds or accessory muscle use. SpO2<100> CARDIOVASCULAR: Regular rate and rhythm without noted murmurs ABDOMEN: Soft, non-tender, non-distended with bowel sounds. Left hand: Swelling, no deformity noted, tenderness on palpation across 5th MCP, capillary refill less than 3 seconds, sensation intact NEUROLOGIC: Alert and oriented x 4. Course Course Course Narrative: 35-year-old female with history and clinical presentation likely fracture which was further corroborated by things establishing 5th MCP coming and fracture without displacement. Patient was placed in an ulnar gutter and will be provided with a referral to see Orthopedics. She was also given combination analgesics. Discharge Plan Discharge Clinical Impression: Fracture of metacarpal Patient Disposition: Home, Self-Care Instructions: Boxer Fracture (ED), Splint Care (ED) Additional Instructions: 1. Tylenol 1000 mg, orally, every 6 hours as needed for pain control. Do not exceed 4000 mg within 24 hours. 2. Ibuprofen 400 mg, orally with milk or food, every 6 hours as needed pain control. 3. Apply ice to unexposed skin for 10 15 minutes, 3 to 4 times a day for additional symptom relief. 4. You have been provided with a referral to see Orthopedics please call Monday morning. Return to the ER for acute worsening of symptoms. Prescriptions: No Action cetirizine 10 mg tablet 10 mg PO DAILY Qty: 90 RF: 2 albuterol sulfate 90 mcg/actuation aerosol powdr breath activated 1 inh inhalation Q4-6H PRN (Reason: shortness of breath or wheezing) 30 Days Qty: 1 RF: 1 albuterol sulfate [ProAir HFA] 90 mcg/actuation HFA aerosol inhaler 1 inh inhalation QID PRN (Reason: shortness of breath or wheezing) 30 Days Qty: 8.5 RF: 2 albuterol sulfate [Ventolin HFA] 90 mcg/actuation HFA aerosol inhaler 1 inh inhalation QID PRN (Reason: shortness of breath or wheezing) 30 Days Qty: 8.5 RF: 2 (DME) blood-glucose meter [FreeStyle Lite Meter] Kit See Rx Instructions .ROUTE .MEDSUPPLY Qty: 1 RF: 0 alcohol swabs Pads, Medicated 1 pad topical BID Qty: 100 RF: 1 fluticasone propion-salmeterol [Advair HFA] 45-21 mcg/actuation HFA aerosol inhaler 2 puff PO BID 30 Days Qty: 8 RF: 2 blood sugar diagnostic [FreeStyle Lite Strips] Strip 1 strip miscellaneous BID 50 Days Qty: 100 RF: 2 lancets [FreeStyle Lancets] 28 gauge misc 28 gauge topical BID 50 Days Qty: 100 RF: 1 metformin 500 mg tablet extended release 24hr 500 mg PO BID 90 Days Qty: 180 RF: 1 carbamazepine 200 mg tablet PO RF: 0 gabapentin 600 mg tablet 1,200 mg PO BEDTIME RF: 0 penicillin V potassium 500 mg tablet 500 mg PO QID 7 Days Qty: 28 RF: 0 Referrals: Rito Conroy, [employer] [Primary Care Provider] - 2 days (Left boxer's fracture) Mariposa Mcconnell MD [Physician] - 2 days (Left boxer's fracture) Stand Alone Forms: Work/School Release
[2021-04-18] MEDS: Ibuprofen 400 MG TABLET PO (21:23)
[2021-04-18] MEDS: Acetaminophen 325 MG TABLET 975 MG PO (21:24)
[2021-04-18 21:50] VITALS: BP 123/57; PULSE 82; RESP 18; TEMP 36.3; O2SAT 100
== END 2021-04-18 22:18 | disposition home or self-care (01) ==
PROVIDERS: Emergency Provider Student in an Organized Health Care Education/Training Program; PCP Nurse Practitioner Family
DX: S62.307A Unspecified fracture of fifth metacarpal bone, left hand, initial encounter for closed fracture (principal); M79.642 Pain in left hand; Y29.XXXA Contact with blunt object, undetermined intent, initial encounter; Y93.9 Activity, unspecified; Y92.9 Unspecified place or not applicable; Y99.9 Unspecified external cause status; Z79.899 Other long term (current) drug therapy
CPT/HCPCS: 29125; 73110; 73130; 99284

== ENCOUNTER → 2021-04-22 10:22 | Outpatient (BNVA) | payer OTHER, MEDICAID, SELFPAY | PROVIDERS: PCP Nurse Practitioner Family; Visit Provider Physician Assistant | DX: S62.337A Displaced fracture of neck of fifth metacarpal bone, left hand, initial encounter for closed fracture (principal) | CPT/HCPCS: 26600; 29085 ==

== ENCOUNTER 2021-05-19 12:53 | Outpatient (REF) | payer OTHER, MEDICAID, SELFPAY ==
--- NOTE | ~2021-05-19 | XR_ITS ---
EXAMINATION: XR HAND, LEFT CLINICAL INFORMATION: Pain in left hand, please call COMPARISON: X-ray of the left hand 04/18/2021 TECHNIQUE: PA, lateral, and oblique views of the left hand. FINDINGS: Fifth metacarpal: There is an expansile primarily lucent lesion with a punctate density noted throughout involving the distal diametaphysis of the bone.. There is endosteal scalloping most evident along the proximal portion of the lesion. The lesion measures up to 12 mm transverse and 18 mm craniocaudal. This has not changed in size compared with the prior x-ray. There is deformity of the bone with a subtle fracture line noted and the metaphysis. The fracture is less conspicuous compared to prior. There is some callus formation noted. There is some irregularity of the radial cortex likely in part related to the fracture. There is some radial tilt of the distal fragment likely at least in part related to the fracture and perhaps related to deformity of the metacarpal related to the lesion. The fifth metacarpal phalangeal joint remains normal. No additional lesions noted. XR/XR hand LT min 3V IMPRESSION: Pathologic fracture involving the unchanged expansile lesion involving the distal portion of the fifth metacarpal. There is some callus formation noted. The fracture is slightly less conspicuous compared to prior suggestive of some interval partial healing. 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 Malignancy is very unlikely.
== END 2021-05-19 12:54 | disposition home or self-care (01) ==
LOC: HO.HOSX 12:53
PROVIDERS: Visit Provider Physician Assistant
DX: S62.339D Displaced fracture of neck of unspecified metacarpal bone, subsequent encounter for fracture with routine healing (principal); M89.8X9 Other specified disorders of bone, unspecified site; M79.642 Pain in left hand
CPT/HCPCS: 73130

== ENCOUNTER 2021-05-21 08:06 | Outpatient (REF) | payer OTHER, MEDICAID, SELFPAY ==
--- NOTE | ~2021-05-21 | MR_ITS ---
EXAMINATION: MR HAND WITHOUT CONTRAST, LEFT CLINICAL INFORMATION: Left boxer's fracture. COMPARISON: Radiograph dated 05/19/2021 TECHNIQUE: Multiplanar MR imaging was obtained through the left hand without contrast material on a 1.5 Amelie magnet. The patient refused intravenous contrast material. FINDINGS: At the distal half of the 5th metacarpal, there is a 2 x 1.2 x 1.2 cm intramedullary lesion with cortical thinning and expansion, heterogeneous increased intrasubstance signal on T2-weighted images and low signal intensity on T1-weighted images. There is a transverse, circumferential cortical break with buckling and slight palmar flexion. There is mild surrounding soft tissue edema signal. No additional lesions are identified. Marrow signal is otherwise normal. Joints appear well preserved. No articular abnormalities are identified. No joint effusion. Aside from the mild perilesional intramuscular edema, the musculature is normal in signal intensity. Tendons are intact without tears, tendinosis, or tenosynovitis. MR/MR hand LT wo con IMPRESSION: Pathologic fracture of the 5th metacarpal neck at a 2 cm expansile intramedullary lesion. This lesion is most consistent with an enchondroma and lacks additional features which would suggest a more aggressive lesion. Continued radiographic followup is recommended to verify healing and lesion stability.
== END 2021-05-21 08:07 | disposition home or self-care (01) ==
LOC: HO.MRI 08:06
PROVIDERS: Visit Provider Physician Assistant
DX: M84.442A Pathological fracture, left hand, initial encounter for fracture (principal); M89.8X9 Other specified disorders of bone, unspecified site
CPT/HCPCS: 73218

== ENCOUNTER 2021-06-09 09:04 | Outpatient (REF) | payer OTHER, MEDICAID, SELFPAY ==
--- NOTE | ~2021-06-09 | XR_ITS ---
EXAMINATION: XR HAND, LEFT CLINICAL INFORMATION: Pain in the left hand. COMPARISON: Prior radiographs most recent 05/19/2021 and MRI 05/21/2021 TECHNIQUE: PA, lateral, and oblique views of the left hand. FINDINGS: Again noted is the mildly expansile primarily lucent lesion within the distal diametaphysis of the 5th metacarpal. There is persistent cortical irregularity. The fracture line is less conspicuous. Punctate areas of increased density consistent with a partially calcified matrix. Possible callus formation along the radial aspect of the neck of the metacarpal, as before. There is some deformity of the metacarpal likely related to the fracture. The joint space is normally maintained. No additional abnormalities noted. XR/XR hand LT min 3V IMPRESSION: Findings consistent with healing pathologic fracture of the lesion in the distal 5th metacarpal. The appearance of the lesion is consistent with a cartilage lesion, likely enchondroma. This likely diagnosis is also confirmed on recent MRI.
== END 2021-06-09 09:05 | disposition home or self-care (01) ==
LOC: HO.HOSX 09:04
PROVIDERS: Visit Provider Orthopaedic Surgery
DX: D16.12 Benign neoplasm of short bones of left upper limb (principal); S62.337A Displaced fracture of neck of fifth metacarpal bone, left hand, initial encounter for closed fracture
CPT/HCPCS: 73130

== ENCOUNTER 2021-07-12 13:25 | Outpatient (REF) | payer OTHER, MEDICAID, SELFPAY | END 2021-07-12 13:26 | disposition home or self-care (01) | LOC: HO.LAB 13:25 | PROVIDERS: PCP Nurse Practitioner Family; Visit Provider Nurse Practitioner Family | DX: Z13.89 Encounter for screening for other disorder (principal) ==

== ENCOUNTER 2021-07-13 08:07 | Outpatient (REF) | payer OTHER, MEDICAID, SELFPAY ==
[2021-07-15 21:32] LABS: TS Negative Control Passed; TS Panel A 0; TS Panel B 0; TS Positive Control Passed; TSpotTB Negative (Negative)
== END 2021-07-13 08:08 | disposition home or self-care (01) ==
LOC: HO.LAB 08:07
PROVIDERS: PCP Nurse Practitioner Family; Visit Provider Nurse Practitioner Family
DX: Z11.1 Encounter for screening for respiratory tuberculosis (principal)
CPT/HCPCS: 36415; 86481

== ENCOUNTER 2021-07-23 11:30 | Outpatient (REF) | payer OTHER, MEDICAID, SELFPAY ==
[2021-07-23 12:38] LABS: Binax Internal Control QC Valid; Binax Now Covid-19 Ag Negative (Negative)
== END 2021-07-23 11:31 | disposition home or self-care (01) ==
LOC: HO.LAB 11:30
PROVIDERS: Visit Provider Internal Medicine
DX: Z20.822 Contact with and (suspected) exposure to COVID-19 (principal)
CPT/HCPCS: 36415; C9803

== ENCOUNTER 2021-12-08 | Outpatient (REF) | payer BC, MEDICAID, SELFPAY ==
[2021-12-08 09:13] LABS: Alanine Aminotransferase 17 U/L (0-31); Albumin Level 4.1 g/dL (3.5-5.0); Alkaline Phosphatase 129 U/L (39-117); Anion Gap 11 (12-20); Aspartate Amino Transferase 20 U/L (5-31); Bilirubin Total 0.5 mg/dL (0.0-1.0); Blood Urea Nitrogen 11 mg/dL (9-16); Calcium 9.3 mg/dL (8.4-10.2); Carbon Dioxide 25 mmol/L (22-29); Chloride 106 mmol/L (96-108); Cholesterol 180 mg/dL; Estimated Glomerular Filt Rate > 60; Glucose Fasting 122 mg/dL (60-99); HDL Cholesterol 40 mg/dL; LDL Cholesterol Calculated 123 mg/dl; Potassium 4.6 mmol/L (3.3-5.1); Sodium 137 mmol/L (135-145); Total Protein 7.3 g/dL (6.5-8.0); Triglycerides 87 mg/dL
[2021-12-08 09:56] LABS: Estimated Average Glucose 140 mg/dL; Hemoglobin A1c % 6.5 %
[2021-12-08 13:37] LABS: Appearance Urine CLEAR; Color Urine STRAW; Glucose Urine UA NEG (NEG); Leukocyte Esterase Urine NEG (NEG); Nitrite Urine NEG (NEG); Urine Blood NEG (NEG); Urine Ketones NEG (NEG); Urine Protein NEG (NEG-TRACE)
== END 2021-12-08 00:01 ==
LOC: HO.LAB
PROVIDERS: PCP Nurse Practitioner Family; Visit Provider Nurse Practitioner Family
DX: Z00.00 Encounter for general adult medical examination without abnormal findings (principal); E11.9 Type 2 diabetes mellitus without complications
CPT/HCPCS: 36415; 80053; 80061; 81003; 83036; 84443

== ENCOUNTER 2022-05-14 10:25 | Outpatient (REF) | payer BC, MEDICAID, SELFPAY ==
--- NOTE | ~2022-05-14 | XR_ITS ---
EXAMINATION: XR CHEST CLINICAL INFORMATION: Acute bronchitis COMPARISON: Previous chest CTA July 2020 TECHNIQUE: 2 views of the chest were obtained. FINDINGS: No significant abnormality is noted involving the heart, lungs, mediastinum, bony thorax or soft tissues. Mild pectus deformity. XR/XR chest 2V IMPRESSION: No evidence for acute disease in the chest.
== END 2022-05-14 10:26 | disposition home or self-care (01) ==
LOC: HO.HMGCX 10:25
PROVIDERS: PCP Nurse Practitioner Family; Visit Provider Physician Assistant
DX: J20.8 Acute bronchitis due to other specified organisms (principal)
CPT/HCPCS: 71046

== ENCOUNTER 2022-05-23 11:10 | Outpatient (REF) | payer BC, MEDICAID, SELFPAY | END 2022-05-23 11:11 | disposition home or self-care (01) | LOC: HO.HOSX 11:10 | PROVIDERS: Visit Provider Orthopaedic Surgery | DX: Z13.89 Encounter for screening for other disorder (principal) ==

== ENCOUNTER 2022-10-25 09:38 | Outpatient (REF) | payer BC, MEDICAID, SELFPAY | END 2022-10-25 09:39 | disposition home or self-care (01) | LOC: HO.HOSX 09:38 | PROVIDERS: Visit Provider Orthopaedic Surgery | DX: Z13.89 Encounter for screening for other disorder (principal) ==

== ENCOUNTER 2022-10-26 15:11 | Outpatient (REF) | payer BC, MEDICAID, SELFPAY | END 2022-10-26 15:12 | disposition home or self-care (01) | LOC: HO.HOSX 15:11 | PROVIDERS: Visit Provider Orthopaedic Surgery | DX: Z13.89 Encounter for screening for other disorder (principal) ==

== ENCOUNTER 2022-11-21 15:26 | Outpatient (REF) | payer BC, MEDICAID, SELFPAY | END 2022-11-21 15:27 | disposition home or self-care (01) | LOC: HO.HOSX 15:26 | PROVIDERS: Visit Provider Orthopaedic Surgery | DX: Z13.89 Encounter for screening for other disorder (principal) ==

== ENCOUNTER 2022-11-23 06:53 | Outpatient (REF) | payer BC, MEDICAID, SELFPAY | END 2022-11-23 06:54 | disposition home or self-care (01) | LOC: HO.HOSX 06:53 | PROVIDERS: Visit Provider Orthopaedic Surgery | DX: Z13.89 Encounter for screening for other disorder (principal) ==

== ENCOUNTER 2023-06-21 09:58 | Outpatient (AMB) | payer BC, MEDICAID, SELFPAY ==
--- NOTE | 2023-06-21 10:07 | A.OFFVIS_ITS ---
Intake Vital Signs 06/21/23 10:15 Height 5 ft 5 in Weight 200 lb BMI 33.3 Intake Visit Reasons: New Prob- left knee pain Intake Note: Lucy lara 38 year old female presents today for an evaluation of left knee. Patient reports pain has been present for about a year that had gotten worse during the summer. States most of her pain comes with going up the stairs, she will take one step out of time and will feel like her knee will give out. Denies injury, numbness or tingling. No other tx. Allergies No Known Allergies Allergy (Verified 01/04/23 12:24) Medication List - Last Reconciled 06/21/23 by Gerald Driscoll PA-C albuterol sulfate 90 mcg/actuation (Ventolin HFA) 1 inh inhalation QID PRN 30 days alcohol swabs 1 pad topical BID blood sugar diagnostic (FreeStyle Lite Strips) 1 strip miscellaneous BID 50 days blood-glucose meter (FreeStyle Lite Meter kit) Use to check blood sugar BID:fasting blood sugar in morning and again at a random check during the day. carbamazepine mg PO cetirizine 10 mg PO DAILY clotrimazole-betamethasone 1-0.05 % 1 appl topical BID 1 week FreeStyle Radu 2 [place] (flash glucose scanning reader) TID testing NS FreeStyle Radu 2 Sensor (flash glucose sensor) TID testing NS gabapentin 1,200 mg PO BEDTIME lancets (FreeStyle Lancets) 28 gauge topical BID 50 days semaglutide (Ozempic) 0.25 mg (0.368 mL) subcut QWEEK valacyclovir 500 mg PO BID 7 days HPI New Prob- left knee pain HPI Details 38-year-old female who presents [facility] for evaluation of left knee pain for about an year which has been worse since summer. She states she has left knee pain which is aggravated with stair use especially upstairs, prolonged sitting, bending and in cold weather. She also experiences like her knee will give out and she has to take one step at a time while using stairs. She denies any numbness or tingling and has not had any treatment in the past. She WFH and sits on chair for 10 hours a day. [facility] Medical History Anemia Diabetes Lumbago Trigeminal neuralgia Vitamin D deficiency Surgical History No pertinent past surgical history Family History Father Diabetes mellitus Mother HTN (hypertension) Fibromyalgia Maternal Grandmother Zika virus disease Alzheimer's disease Dementia Maternal Grandfather No problems noted. Paternal Grandfather No problems noted. Paternal Grandmother No problems noted. Brother No problems noted. Brother No problems noted. Son No problems noted. Son No problems noted. Family/Other Breast cancer Other Mental health disorder Substance use disorder Social History (Updated 06/21/23 @ 10:13 by AMY Krueger) Housing: Apartment Alcohol intake: current Alcohol intake frequency: holidays/special occasions only Patient Tobacco Use Status: Never used Tobacco e-Cigarette/Vaping Use: Never Used Current occupational status: employed Current occupation: [employer], right handed. Cognitive needs: No Hearing needs: No Vision needs: No Review of Systems Const All systems reviewed & are unremarkable except as noted in HPI and below Physical Exam Vital Signs: BMI result Body Mass Index 33.3 Extrem Other: Left knee: Skin intact, no erythema or joint effusion. Lateral retropatellar Tenderness. Full ROM with crepitus. Negative Flynn?s. No ligamentous laxity. NVI. Results Reviewed Results Reviewed: Xrays were obtained in the office today and personally reviewed by me of the left knee show lateralization of the patella. Assessment & Plan Assessment & Plan (1) Chronic patellofemoral pain of left knee: Code(s): M25.562 - Pain in left knee; G89.29 - Other chronic pain Plan We discussed options which include PT, NSAIDs and injections. She will proceed with PT and NSAIDs. She was also fit for a genumed knee brace. If symptoms persist, the patient will contact me for , otherwise, PRN. Orders: Orders XR knee LT 2V Today M25.562 - Pain in left knee PT Evaluation and Treatment Today G89.29 - Other chronic pain, M25.562 - Pain in left knee XR knee standing BI Today M25.561 - Pain in right knee, M25.562 - Pain in left knee Patient Instructions: Scribed for Gerald Driscoll PA-C, by Margarito Rushing medical orderly, on 06/21/2023 at 9:45 AM Gerald MAY PA-C, have personally reviewed and agree with the information entered by the scribe. Coding Level of Care Code Est Pt Level 3 (50983) Diagnoses Chronic patellofemoral pain of left knee M25.562; G89.29
[2023-06-21 10:15] VITALS: BMI 33.3
== END 2023-06-21 10:53 | disposition home or self-care (01) ==
PROVIDERS: PCP Nurse Practitioner Family; Visit Provider Physician Assistant
DX: M25.562 Pain in left knee (principal); G89.29 Other chronic pain
CPT/HCPCS: 99213

== ENCOUNTER 2023-06-21 12:34 | Outpatient (REF) | payer BC, OTHER, SELFPAY ==
--- NOTE | ~2023-06-21 | XR_ITS ---
EXAMINATION: XR KNEE, LEFT XR STANDING KNEE, BILATERAL CLINICAL INFORMATION: Pain right knee COMPARISON: None available. TECHNIQUE: Single view of the bilateral standing knees 2 views of the left knee FINDINGS: No acute visible fracture or dislocation. Mild narrowing of the bilateral medial femorotibial compartments. Mild to moderate narrowing of the left lateral patellofemoral compartment. A fabella is noted in the left posterior compartment. Joint space alignment are otherwise maintained. Small left-sided knee joint effusion. Soft tissues are unremarkable. XR/XR knee standing BI IMPRESSION: 1. No acute visible fracture or dislocation. 2. Mild bilateral multicompartment degenerative changes. 3. Small left-sided knee joint effusion.
--- NOTE | ~2023-06-21 | XR_ITS ---
EXAMINATION: XR KNEE, LEFT XR STANDING KNEE, BILATERAL CLINICAL INFORMATION: Pain right knee COMPARISON: None available. TECHNIQUE: Single view of the bilateral standing knees 2 views of the left knee FINDINGS: No acute visible fracture or dislocation. Mild narrowing of the bilateral medial femorotibial compartments. Mild to moderate narrowing of the left lateral patellofemoral compartment. A fabella is noted in the left posterior compartment. Joint space alignment are otherwise maintained. Small left-sided knee joint effusion. Soft tissues are unremarkable. XR/XR knee LT 2V IMPRESSION: 1. No acute visible fracture or dislocation. 2. Mild bilateral multicompartment degenerative changes. 3. Small left-sided knee joint effusion.
== END 2023-06-21 12:35 | disposition home or self-care (01) ==
LOC: HO.HOSX 12:34
PROVIDERS: Visit Provider Physician Assistant
DX: M25.562 Pain in left knee (principal); M25.561 Pain in right knee
CPT/HCPCS: 73560; 73565

== ENCOUNTER 2023-06-22 14:02 | Outpatient (AMB) | payer BC, SELFPAY ==
--- NOTE | 2023-06-22 14:08 | MHC.PC.OV ---
Vital Signs 06/22/23 14:10 Height 5 ft 5 in Weight 199 lb BMI 33.1 BP 110/76 Blood Pressure Location Lt brachial Position Sitting Pulse 91 Pulse Source Pulse Oximeter Pulse Oximetry (%) 99 Oxygen Delivery Method Room Air Intake Visit Reasons: 3/4m follow up dm Allergies No Known Allergies Allergy (Verified 06/22/23 14:13) Medication List - Last Reconciled 06/22/23 by YING Rios albuterol sulfate 90 mcg/actuation (Ventolin HFA) 1 inh inhalation QID PRN 30 days alcohol swabs 1 pad topical BID blood sugar diagnostic (FreeStyle Lite Strips) 1 strip miscellaneous BID 50 days blood-glucose meter (FreeStyle Lite Meter kit) Use to check blood sugar BID:fasting blood sugar in morning and again at a random check during the day. carbamazepine mg PO cetirizine 10 mg PO DAILY clotrimazole-betamethasone 1-0.05 % 1 appl topical BID 1 week FreeStyle Radu 2 [place] (flash glucose scanning reader) TID testing NS FreeStyle Radu 2 Sensor (flash glucose sensor) TID testing NS gabapentin 1,200 mg PO BEDTIME lancets (FreeStyle Lancets) 28 gauge topical BID 50 days semaglutide (Ozempic) 0.25 mg (0.368 mL) subcut QWEEK valacyclovir 500 mg PO BID 7 days Tobacco use date assessed: 01/04/23 HPI 3/4m follow up dm HPI Details Pt is a diabetic. A1C in office today is 7.2. Due for microalbumin, this has been ordered. Denies polyuria, polydipsia, and neuropathy. Pt denies any signs and symptoms of hypoglycemia and does know how to correct it. Pt has not been checking her blood sugar because she needs a new sensor, will REsend. Will increase ozempic from .25 to .5mg weekly PFS Medical History Diabetes Vitamin D deficiency Lumbago Anemia Trigeminal neuralgia Surgical History No pertinent past surgical history Family History Father Diabetes mellitus Mother HTN (hypertension) Fibromyalgia Maternal Grandmother Zika virus disease Alzheimer's disease Dementia Maternal Grandfather No problems noted. Paternal Grandfather No problems noted. Paternal Grandmother No problems noted. Brother No problems noted. Brother No problems noted. Son No problems noted. Son No problems noted. Family/Other Breast cancer Other Mental health disorder Substance use disorder Social History Housing: Apartment Alcohol intake: current Alcohol intake frequency: holidays/special occasions only Patient Tobacco Use Status: Never used Tobacco e-Cigarette/Vaping Use: Never Used Current occupational status: employed Current occupation: [employer], right handed. Cognitive needs: No Hearing needs: No Vision needs: No Questionnaire Thrive Questionnaire Date Thrive assessed: 07/29/21 REMY-7 AMB Questionnaire REMY-7 Date REMY - 7 assessed: 07/29/21 Source: Developed by Drs. Antonio Avalos, Brit Mejia, Erickson Carroll and colleagues, with an educational andria from [employer]. Review of Systems Const Reports as per HPI Physical exam (Primary Care) Vital Signs: Last Vital Signs Pulse 91 06/22/23 14:10 BP 110/76 06/22/23 14:10 Pulse Ox 99 06/22/23 14:10 Oxygen Delivery Method Room Air 06/22/23 14:10 BMI result Body Mass Index 33.1 Tobacco/Smoking Status: Tobacco use Status Tobacco use date assessed 01/04/23 06/22/23 14:10 Patient Tobacco Use Status Never used Tobacco 06/22/23 14:10 e-Cigarette/Vaping Use Never Used 06/22/23 14:10 Thrive Assessment: Date of Thrive Assessment Date Thrive assessed 07/29/21 06/22/23 14:10 Const General: cooperative Nutritional Appearance: obese Orientation/consciousness: patient oriented x3 Resp Effort & Inspection: normal respiratory effort Auscultation: clear to auscultation bilaterally Cardio Rate: regular rate Rhythm: regular rhythm Heart sounds: S1 normal heart sound present and S2 normal heart sound present Neuro General: patient oriented x3 Extrem Other: bilat feet: + sensation with use of monofilament Psych Appearance: grossly normal Mental Status: mental status grossly normal Speech and movement: Normal speech and movement present Affect: normal affect Attitude: cooperative Thought process: Normal thought process present Thought content: Normal thought content present Insight: Good insight present (Psych) Judgement: Good judgement present (Psych) Results AMB Hemoglobin A1c AMB Hemoglobin A1c 7.2 % Last Edit by ULISES Doherty on 06/22/23 14:31 Immunizations pneumoc 20-refugio conj-dip cr(PF) 0.5 mL IM syringe Performing Provider: YING Rios Performing Location: [facility] Administered by: ULISES Doherty on 06/22/23 14:47 Dose Route Admin Location Dispensed Lot Number Expiration Date NDC Employment Supervisor 0.5 mL IM Left Deltoid 0.5 mL [id number] 03/15/24 3754-1948-14 [employer] VIS Given Date VIS Provided VIS Publication Date 06/22/23 Single Vaccine 21 Eligibility Eligibility Date Funding Source Not [facility] Eligible 06/22/23 Private Results Reviewed Results Reviewed: Laboratory Last Values Hgb A1c (Clinic) 7.2 % (4.0-6.0) H 06/22/23 14:30 Assessment and Plan Assessment & Plan (1) Diabetes: Code(s): E11.9 - Type 2 diabetes mellitus without complications Plan The patient agreed to the use of a medical dosimetrist for this encounter. Scribed for YING Ontiveros by Ella Perez medical dosimetrist, on 06/22/2023 at 14:30 EST. Orders: Orders AMB Hemoglobin A1c Today Z13.9 - Encounter for screening, unspecified Pneumococcal 20 Immunization Today Z23 - Encounter for immunization Medications: Changed From semaglutide (Ozempic) for 4 weeks 0.25 mg (0.368 mL) subcut QWEEK 3 mL 1RF E11.9 - Type 2 diabetes mellitus without complications To semaglutide (Ozempic) for 4 weeks 0.5 mg (0.736 mL) subcut QWEEK 3 mL 2RF E11.9 - Type 2 diabetes mellitus without complications Refilled FreeStyle Radu 2 Sensor (flash glucose sensor) TID testing 6 ea 1RF NS E11.9 - Type 2 diabetes mellitus without complications Coding Level of Care Code Est Pt Level 3 (98176) Diagnoses Diabetes E11.9
[2023-06-22 14:10] VITALS: BP 110/76; PULSE 91; O2SAT 99; BMI 33.1
== END 2023-06-22 14:50 | disposition home or self-care (01) ==
PROVIDERS: PCP Nurse Practitioner Family; Visit Provider Nurse Practitioner Family
DX: E11.9 Type 2 diabetes mellitus without complications (principal); Z23 Encounter for immunization
CPT/HCPCS: 83036; 90471; 90677; 99213

== ENCOUNTER → 2023-11-22 15:04 | Outpatient (AMB) | payer BC, SELFPAY ==
[2023-11-22 15:05] VITALS: BP 112/72; PULSE 101; O2SAT 98
--- NOTE | 2023-11-22 15:05 | MHC.PC.OV ---
Vital Signs 11/22/23 15:05 Height 5 ft 5 in Intake Visit Reasons: EST/lower back pain (lobby) Intake Note: pt is here for lower back pain Allergies No Known Allergies Allergy (Verified 06/22/23 14:13) Tobacco use date assessed: 01/04/23 Dental Screening Dental Screen Date: 01/04/23 [facility] Medical History Diabetes Vitamin D deficiency Lumbago Anemia Trigeminal neuralgia Surgical History No pertinent past surgical history Family History Father Diabetes mellitus Mother HTN (hypertension) Fibromyalgia Maternal Grandmother Zika virus disease Alzheimer's disease Dementia Maternal Grandfather No problems noted. Paternal Grandfather No problems noted. Paternal Grandmother No problems noted. Brother No problems noted. Brother No problems noted. Son No problems noted. Son No problems noted. Family/Other Breast cancer Other Mental health disorder Substance use disorder Social History Housing: Apartment Alcohol intake: current Alcohol intake frequency: holidays/special occasions only Patient Tobacco Use Status: Never used Tobacco e-Cigarette/Vaping Use: Never Used Current occupational status: employed Current occupation: [employer], right handed. Cognitive needs: No Hearing needs: No Vision needs: No Questionnaire Thrive Questionnaire Date Thrive assessed: 07/29/21 REMY-7 AMB Questionnaire REMY-7 Date REMY - 7 assessed: 07/29/21 Source: Developed by Drs. Antonio Avalos, Brit Mejia, Erickson Carroll and colleagues, with an educational andria from [employer]. Physical exam (Primary Care) Tobacco/Smoking Status: Tobacco use Status Tobacco use date assessed 01/04/23 06/22/23 14:10 Patient Tobacco Use Status Never used Tobacco 06/22/23 14:10 e-Cigarette/Vaping Use Never Used 06/22/23 14:10 Thrive Assessment: Date of Thrive Assessment Date Thrive assessed 07/29/21 06/22/23 14:10 Coding
--- NOTE | 2023-11-22 15:09 | AM.OFFWIN_ITS ---
Intake Vital Signs 3 11/22/23 15:05 Height 5 ft 5 in BP 112/72 Blood Pressure Location Rt brachial Position Sitting Pulse 101 H Pulse Source Pulse Oximeter Pulse Oximetry (%) 98 Oxygen Delivery Method Room Air Intake Visit Reasons: EST/lower back pain (lobby) Patient Tobacco Use Status: Never used Tobacco Allergies No Known Allergies Allergy (Verified 06/22/23 14:13) Medication List - Last Reconciled 11/22/23 by Re Anthony MD albuterol sulfate 90 mcg/actuation (Ventolin HFA) 1 inh inhalation QID PRN 30 days alcohol swabs 1 pad topical BID blood sugar diagnostic (FreeStyle Lite Strips) 1 strip miscellaneous BID 50 days blood-glucose meter (FreeStyle Lite Meter kit) Use to check blood sugar BID:fasting blood sugar in morning and again at a random check during the day. carbamazepine mg PO cetirizine 10 mg PO DAILY clotrimazole-betamethasone 1-0.05 % 1 appl topical BID 1 week FreeStyle Radu 2 [place] (flash glucose scanning reader) TID testing NS FreeStyle Radu 2 Sensor (flash glucose sensor) TID testing NS gabapentin 1,200 mg PO BEDTIME lancets (FreeStyle Lancets) 28 gauge topical BID 50 days semaglutide (Ozempic) 0.5 mg (0.736 mL) subcut QWEEK valacyclovir 500 mg PO BID 7 days Do you need a note to return to daycare/school/sports/work: Yes HPI EST/lower back pain (lobby) 2 HPI0 Details Patient is 38-year-old female came in today to be evaluated for lower back pain Patient says that she was working this morning when suddenly she started having pain lower back on both sides Now it hurts to move, pain is nonradiating On examination patient have paraspinal lumbar pain I am treating her with cyclobenzaprine 10 mg up to 3 times a day for a week Patient was notified that local heat will help She may also take ibuprofen [id number] as needed Review system reviews no bowel or bladder issues, no weakness in legs PFSH Medical History Diabetes Vitamin D deficiency Lumbago Anemia Trigeminal neuralgia Surgical History No pertinent past surgical history Family History Father Diabetes mellitus Mother HTN (hypertension) Fibromyalgia Maternal Grandmother Zika virus disease Alzheimer's disease Dementia Maternal Grandfather No problems noted. Paternal Grandfather No problems noted. Paternal Grandmother No problems noted. Brother No problems noted. Brother No problems noted. Son No problems noted. Son No problems noted. Family/Other Breast cancer Other Mental health disorder Substance use disorder Social History Housing: Apartment Alcohol intake: current Alcohol intake frequency: holidays/special occasions only Patient Tobacco Use Status: Never used Tobacco e-Cigarette/Vaping Use: Never Used Current occupational status: employed Current occupation: [employer], right handed. Cognitive needs: No Hearing needs: No Vision needs: No Review of Systems Const All systems reviewed & are unremarkable except as noted in HPI and below Physical Exam Vital Signs: Last Vital Signs Pulse 101 H 11/22/23 15:05 BP 112/72 11/22/23 15:05 Pulse Ox 98 11/22/23 15:05 Oxygen Delivery Method Room Air 11/22/23 15:05 Const General: no acute distress Orientation/consciousness: patient oriented x3 Eyes General: appearance normal, both eyes and all related structures Resp Effort & Inspection: normal respiratory effort and able to speak in complete sentences Back/Spine/Pelvis Back/spine/pelvis image: 2 1. No pain with the spinal percussion, straight leg negative both sides, motor sensory intact Neuro General: patient oriented x3 Psych Mental Status: mental status grossly normal Assessment & Plan Assessment & Plan (1) Lumbar paraspinal muscle spasm: Code(s): M62.830 - Muscle spasm of back Plan Patient is 38-year-old female came in today to be evaluated for lower back pain Patient says that she was working this morning when suddenly she started having pain lower back on both sides Now it hurts to move, pain is nonradiating On examination patient have paraspinal lumbar pain I am treating her with cyclobenzaprine 10 mg up to 3 times a day for a week Patient was notified that local heat will help She may also take ibuprofen [id number] as needed Review system reviews no bowel or bladder issues, no weakness in legs Medications: New 2 cyclobenzaprine 10 mg PO Q8H PRN 20 tabs 0RF muscle spasm 7 days M54.9 - Dorsalgia, unspecified Coding Level of Care Code Est Pt Level 3 (88837) Diagnoses Lumbar paraspinal muscle spasm M62.830
== END ==
PROVIDERS: PCP Nurse Practitioner Family; Visit Provider Internal Medicine
DX: M62.830 Muscle spasm of back (principal)
CPT/HCPCS: 99213

== ENCOUNTER 2024-03-26 14:36 | Outpatient (AMB) | payer BC, SELFPAY ==
--- NOTE | 2024-03-26 14:42 | MHC.PC.OV ---
Vital Signs 03/26/24 14:48 Height 5 ft 5 in Weight 188 lb BMI 31.3 BP 112/80 Blood Pressure Location Rt brachial Position Sitting Pulse 72 Pulse Source Pulse Oximeter Pulse Oximetry (%) 98 Oxygen Delivery Method Room Air Intake Visit Reasons: Annual Physical Intake Note: Patient here for physical exam. Last Pap: unknown Allergies No Known Allergies Allergy (Verified 03/26/24 14:51) Medication List - Last Reconciled 03/26/24 by YING Rios albuterol sulfate 90 mcg/actuation (Ventolin HFA) 1 inh inhalation QID PRN 30 days alcohol swabs 1 pad topical BID blood sugar diagnostic (FreeStyle Lite Strips) 1 strip miscellaneous BID 50 days blood-glucose meter (FreeStyle Lite Meter kit) Use to check blood sugar BID:fasting blood sugar in morning and again at a random check during the day. carbamazepine mg PO cetirizine 10 mg PO DAILY clotrimazole-betamethasone 1-0.05 % 1 appl topical BID 1 week cyclobenzaprine 10 mg PO Q8H PRN 7 days empagliflozin (Jardiance) 10 mg PO DAILY FreeStyle Radu 2 [place] (flash glucose scanning reader) TID testing NS FreeStyle Radu 2 Sensor (flash glucose sensor) TID testing NS gabapentin 1,200 mg PO BEDTIME lancets (FreeStyle Lancets) 28 gauge topical BID 50 days semaglutide (Ozempic) 0.25 mg (0.368 mL) subcut QWEEK valacyclovir 500 mg PO BID 7 days Tobacco use date assessed: 03/26/24 Dental Screening Dental Screen Date: 03/26/24 Did you have a dental visit in the last 12 months?: No Was dental information given to patient?: No HPI Annual Physical HPI Details Pt is here for a PE. Will order labs. Pt is a diabetic. A1C in office today is 11.7. Due for microalbumin. Denies polyuria, polydipsia, does report intermittent neuropathy to her feet. Will start jardiance 10mg. Will refer to endo. WIll also restart ozempic, which she stopped. Reinforced proper diet and importance of following up with endo. [facility] Medical History Diabetes Vitamin D deficiency Lumbago Anemia Trigeminal neuralgia Surgical History No pertinent past surgical history Family History Father Diabetes mellitus Mother HTN (hypertension) Fibromyalgia Maternal Grandmother Zika virus disease Alzheimer's disease Dementia Maternal Grandfather No problems noted. Paternal Grandfather No problems noted. Paternal Grandmother No problems noted. Brother No problems noted. Brother No problems noted. Son No problems noted. Son No problems noted. Family/Other Breast cancer Other Mental health disorder Substance use disorder Social History Housing: Apartment Alcohol intake: current Alcohol intake frequency: holidays/special occasions only Patient Tobacco Use Status: Never used Tobacco e-Cigarette/Vaping Use: Never Used Current occupational status: employed Current occupation: [employer], right handed. Cognitive needs: No Hearing needs: No Vision needs: No Questionnaire Thrive Questionnaire Date Thrive assessed: 03/23/24 I am a: Patient What is your living situation today?: I have a steady place to live Within the past 12 months, did the food you bought not last and you didn't have the money to get more?: Sometimes True Within the past 12 months, did you worry whether your food would run out before you got money to buy more?: Sometimes True Do you have trouble paying for medicines?: No Do you have trouble getting transportation to medical appointments?: No Do you have trouble paying your heating and electricity bill?: No Do you have trouble taking care of your child, family member or friend?: No Do you have trouble with day-to-day activities such as bathing, preparing meals, shopping, managing finances, etc.?: No Are you currently unemployed and looking for a job?: No Are you interested in more education?: Yes Please select the resources that you would like help with: None Currently or been in a relationship where the following occur: No concerns reported THRIVE Score: 2 AUDIT C Alcohol Use Questionnaire (AUDIT-C) 1. How often do you have a drink containing alcohol?: Monthly or less 2. How many drinks containing alcohol do you have on a typical day when you are drinking?: 1 or 2 3. How often do you have six or more drinks on one occasion?: Never Total Score: 1 REMY-7 AMB Questionnaire REMY-7 Date REMY - 7 assessed: 07/29/21 Feeling nervous, anxious, or on edge: 1 = Several days Not being able to stop or control worryin = Several days Worrying too much about different things: 1 = Several days Trouble relaxin = Several days Being so restless that it is hard to sit still: 1 = Several days Becoming easily annoyed or irritable: 1 = Several days Feeling afraid as if something awful might happen: 0 = Not at all Total REMY-7 score (0-4 normal; 5-9 mild; 10-14 moderate; 15-21 severe): 6 Source: Developed by Drs. Antonio Avalos, Brit Mejia, Erickson Carroll and colleagues, with an educational andria from [employer]. Review of Systems Const Denies chills and Denies fever(s) Eyes Denies blurry vision ENT Denies vertigo, Denies dizziness and Denies sore throat Card Denies chest pain at rest, Denies chest pain with activity, Denies diaphoresis, Denies dyspnea and Denies dyspnea on exertion Resp Denies cough, Denies dyspnea, Denies dyspnea on exertion and Denies wheezing GI Denies abdominal pain, Denies melena, Denies hematochezia, Denies constipation, Denies diarrhea and Denies loose stools Denies hematuria Musc Reports numbness and Reports tingling Skin/Breast Denies lesions Neuro Denies vertigo, Denies dizziness, Reports numbness and Reports tingling Psych Denies anxiety, Denies depression, Denies homicidal ideation, Denies suicidal ideation and Denies other (substance abuse) Aller/Immun Denies wheezing Physical exam (Primary Care) Vital Signs: Last Vital Signs Pulse 72 03/26/24 14:48 BP 112/80 03/26/24 14:48 Pulse Ox 98 03/26/24 14:48 Oxygen Delivery Method Room Air 03/26/24 14:48 BMI result Body Mass Index 31.3 Tobacco/Smoking Status: Tobacco use Status Tobacco use date assessed 03/26/24 03/26/24 14:55 Patient Tobacco Use Status Never used Tobacco 03/26/24 14:44 e-Cigarette/Vaping Use Never Used 03/26/24 14:44 Thrive Assessment: Date of Thrive Assessment Date Thrive assessed 03/23/24 03/26/24 14:44 Currently or been in a relationship where the following occur: No concerns reported Const General: cooperative Nutritional Appearance: well nourished Orientation/consciousness: patient oriented x3 HENMT Head: Yes normal to inspection, Yes normocephalic and Yes atraumatic Ears: TM's normal bilaterally Eyes General: appearance normal, both eyes and all related structures Alignment and Position: alignment normal and position normal Neck Neck: Yes normal visual inspection, Yes no lymphadenopathy and Yes supple Resp Effort & Inspection: normal respiratory effort Auscultation: clear to auscultation bilaterally Cardio Rate: regular rate Rhythm: regular rhythm Heart sounds: S1 normal heart sound present, S2 normal heart sound present and no murmurs GI Palpation (GI): Soft to palpation and nontender Auscultation: normal bowel sounds Skin Rashes: no rashes Neuro General: patient oriented x3, moves all extremities, no focal motor deficits and deep tendon reflexes 2+ bilaterally Romberg Test: Negative Psych Appearance: grossly normal Mental Status: mental status grossly normal Speech and movement: Normal speech and movement present Affect: normal affect Attitude: cooperative Thought process: Normal thought process present Thought content: Normal thought content present Insight: Good insight present (Psych) Judgement: Good judgement present (Psych) Results AMB Hemoglobin A1c AMB Hemoglobin A1c 11.7 % Last Edit by ULISES Doherty on 03/26/24 15:18 Assessment and Plan Assessment & Plan (1) Physical exam: Code(s): Z00.00 - Encounter for general adult medical examination without abnormal findings Plan: Labs ordered (2) Diabetes: Code(s): E11.9 - Type 2 diabetes mellitus without complications Plan: Starting jardiance, resending ozempic, referring to endo Plan The patient agreed to the use of a certified court/medical interpreter for this encounter. Scribed for YING Ontiveros by Ella Perez certified court/medical interpreter, on 03/26/2024 at 15:00 EST. Orders: Orders Comprehensive [facility]. Panel Fast Today E11.9 - Type 2 diabetes mellitus without complications, Z00.00 - Encounter for general adult medical examination without abnormal findings UA CC w/rflx Micro + Cult Today E11.9 - Type 2 diabetes mellitus without complications, Z00.00 - Encounter for general adult medical examination without abnormal findings AMB Hemoglobin A1c Today E11.9 - Type 2 diabetes mellitus without complications Complete Blood Count Auto Diff Today E11.9 - Type 2 diabetes mellitus without complications, Z00.00 - Encounter for general adult medical examination without abnormal findings TSH reflex Free T4 Today E11.9 - Type 2 diabetes mellitus without complications, Z00.00 - Encounter for general adult medical examination without abnormal findings Lipid Panel Today E11.9 - Type 2 diabetes mellitus without complications, Z00.00 - Encounter for general adult medical examination without abnormal findings Microalbumin, Random (w Creat) Today E11.9 - Type 2 diabetes mellitus without complications, Z00.00 - Encounter for general adult medical examination without abnormal findings Referrals Endocrinology Referral E11.9 - Type 2 diabetes mellitus without complications Medications: New empagliflozin (Jardiance) 10 mg PO DAILY 30 tabs 3RF Changed From semaglutide (Ozempic) for 4 weeks 0.5 mg (0.736 mL) subcut QWEEK 3 mL 2RF E11.9 - Type 2 diabetes mellitus without complications To semaglutide (Ozempic) for 4 weeks 0.25 mg (0.368 mL) subcut QWEEK 3 mL 2RF E11.9 - Type 2 diabetes mellitus without complications Refilled FreeStyle Radu 2 [place] (flash glucose scanning reader) TID testing 1 ea 0RF NS E11.9 - Type 2 diabetes mellitus without complications FreeStyle Radu 2 Sensor (flash glucose sensor) TID testing 6 ea 1RF NS E11.9 - Type 2 diabetes mellitus without complications Coding Level of Care Code Est Pt Prev Care 18-39y(70149) Diagnoses Physical exam Z00.00 Diabetes E11.9
[2024-03-26 14:48] VITALS: BP 112/80; PULSE 72; O2SAT 98; BMI 31.3
== END 2024-03-26 15:44 | disposition home or self-care (01) ==
PROVIDERS: PCP Nurse Practitioner Family; Visit Provider Nurse Practitioner Family
DX: Z00.00 Encounter for general adult medical examination without abnormal findings (principal); E11.9 Type 2 diabetes mellitus without complications
CPT/HCPCS: 83036; 99395

== ENCOUNTER 2024-03-29 07:19 | Outpatient (AMB) | payer BC, SELFPAY ==
[2024-03-29 07:23] VITALS: BP 88/72; PULSE 98; BMI 31.4
--- NOTE | 2024-03-29 07:23 | A.OFFVIS_ITS ---
Vital Signs 03/29/24 07:23 Height 5 ft 5 in Weight 188 lb 7.924 oz BMI 31.4 BP 88/72 L Blood Pressure Location Lt brachial Position Sitting Pulse 98 Pulse Source Pulse Oximeter Intake Visit Reasons: Type 2 DM Intake Note: NEW Patient presents today to establish treatment for Type 2 Diabetes Mellitus: Last Diabetic eye exam was on: 01/2023 Last Podiatry exam was on: Does not see a Stratigraphy Teacher Most recent HbA1c: 11.7%, 03/26/2024 Random Glucose- 215 mg/dL, Today Recruiting And Selection Consultant Required: No Accompanied by: Self / Same As Patient Allergies No Known Allergies Allergy (Verified 03/29/24 07:28) HPI Comments Details: [8 YO female who is seen in consultation for T2DM at the request of PCP. Her most recent A1c 11.7% on 03/26/2024. Prior A1c 01/2023 7.2 %. She had stopped Ozempic which was restarted earlier this week in a prescription for Jardiance was initiated by her PCP this week as well. Initially diagnosed with T2DM in 2020. Was initially started on treatment with metformin. Was able to wean off through diet. Current regimen Ozempic 0.25 mg weekly Jardiance 10 mg daily Freestyle radu sensor 2 Hasn't been using but will restart when insurance approves Reports low sugars [cc in the beginning none since lowest was 80's but has been running high last few months Treats lows with [1/2 cup juice]. Family history of T2DM in father who from [place]. Maternal Uncle Has eyes checked yearly, last eye exam 1 year ago she will reschedule [denies] retinopathy. Neuropathy: very occasional if numbers are off, no cramping , last foot exam 03/29/24, does not see podiatry. On gabapentin for trigeminal neuralgia No nephropathy last urine micro 8.0 in 2021 EGFR> 60 [Denies] HLD, not on statin. Last LDL no results in EHR Denies CAD. Diet: Alot of rice beans, tortillas Tries to lower portions, salads Weight: down since her glucose was high [Had] diabetes education. Has 2 children plus step son all teenagers [facility] Medical History Diabetes Vitamin D deficiency Lumbago Anemia Trigeminal neuralgia Surgical History No pertinent past surgical history Family History Father Diabetes mellitus Mother HTN (hypertension) Fibromyalgia Maternal Grandmother Zika virus disease Alzheimer's disease Dementia Maternal Grandfather No problems noted. Paternal Grandfather No problems noted. Paternal Grandmother No problems noted. Brother No problems noted. Brother No problems noted. Son No problems noted. Son No problems noted. Family/Other Breast cancer Other Mental health disorder Substance use disorder Social History Housing: Apartment Alcohol intake: current Alcohol intake frequency: holidays/special occasions only Patient Tobacco Use Status: Never used Tobacco e-Cigarette/Vaping Use: Never Used Current occupational status: employed Current occupation: [employer], right handed. Cognitive needs: No Hearing needs: No Vision needs: No Physical Exam Absence of Cushingoid features. Absence of acromegalic features. Neck exam reveals nl size thyroid about 15 gms. No thyroid nodules palpable. No carotid br uits present. Lungs CTA. Heart S1 S2, Reg R/R. No M/R/ G. Skin exam reveals absence of vitiligo or acanthosis nigricans. Abdominal exam reveals Soft NT/ND with NA BS. No organomegaly present. Const Other: Absence of Cushingoid features. Absence of acromegalic features. Neck exam reveals nl size thyroid about 15 gms. No thyroid nodules palpable. No carotid bruits present. Lungs CTA. Heart S1 S2, Reg R/R. No M/R G. Skin exam reveals absence of vitiligo or acanthosis nigricans. No edema Neck Other: . Extrem Other: Visual exam of foot performed. No ulcerations or open lesions. No onchomycosis, no callouses.Pulses 2 + distally Sensation intact to monofilament exam. Vibratory sensation sensed is intact with 128 Hz tuning fork Results Reviewed Results Reviewed: Laboratory Tests 10/06/20 02/10/21 12/08/21 21:44 11:45 08:51 Plt Count 287 Creatinine 0.75 Estimated GFR > 60 Hgb A1c (Clinic) Hemoglobin A1c % 6.5 Urine Microalbumin 8.0 01/04/23 06/22/23 03/26/24 11:01 14:30 15:17 Plt Count Creatinine Estimated GFR Hgb A1c (Clinic) 9.1 H 7.2 H 11.7 H Hemoglobin A1c % Urine Microalbumin Assessment & Plan Assessment & Plan (1) Diabetes: Code(s): E11.9 - Type 2 diabetes mellitus without complications Category: Medical Plan: Type 2 diabetic previously controlled while on Ozempic which she discontinued in his been off her diet. Most recent A1c was 11.7 on 03/26/2024. She has started Jardiance in his picked up a prescription for Ozempic 0.25 which she would like to start on Monday. She reports prior authorization has been completed for [employer] Radu 2 which she will use with her phone. She has tolerated Ozempic well in the past and I have written her next prescription for 0.5 with a goal to continue to titrate and possibly discontinue Jardiance once she reaches a target blood sugar. She has fasting lab and urine micro orders through her PCP. Will calculate fib 4 screen for fatty liver at her next visit once labs are available. We reviewed the risks of uncontrolled diabetes. Recommended portion control with her diet and increase exercise. She will follow up with me in 6 weeks and she will see the armature balancer. Orders: Referrals Medical Nutrition Therapy Referral E11.9 - Type 2 diabetes mellitus without complications Medications: New semaglutide (Ozempic) 0.5 mg (0.736 mL) subcut QWEEK 30 days 3.68 mL 6RF Discontinued semaglutide (Ozempic) for 4 weeks Discontinued Reason: Doctor's Order 0.25 mg (0.368 mL) subcut QWEEK 3 mL 2RF E11.9 - Type 2 diabetes mellitus without complications Patient Instructions: The patient was counseled to achieve a target A1C of 7% (154 avg). Fasting blood sugars should be 90-130 in the morning and less than 180 two hours after meals. Reviewed the relationship between poor diabetic control and the developement of complications The patient was counseled to wear closed toe shoes, never walk barefooted and to inspect the feet daily. For any signs of infection or open wound patient should notify PCP or go to urgent care. Low sugar treatment. She was advised to call our office if she has any high sugars or low sugars in between her next visit. Coding Level of Care Code New Pt Level 4 (75965) Complex EM visit Add On G2211 Diagnoses Diabetes E11.9 Time Spent (min) 35 Comment Time spent reviewing labs/provider notes, face to face, chart doc
[2024-03-29 07:35] LABS: Glucose, Whole Blood 215 mg/dL (60-115)
== END 2024-03-29 08:01 | disposition home or self-care (01) ==
PROVIDERS: PCP Nurse Practitioner Family; Visit Provider Nurse Practitioner Adult Health
DX: E11.9 Type 2 diabetes mellitus without complications (principal)
CPT/HCPCS: 99204

== ENCOUNTER → 2024-03-29 07:19 | Outpatient (BNVA) | payer BC, SELFPAY | PROVIDERS: PCP Nurse Practitioner Family; Visit Provider Nurse Practitioner Adult Health | DX: E11.9 Type 2 diabetes mellitus without complications (principal) | CPT/HCPCS: 82947 ==

== ENCOUNTER 2024-03-29 08:09 | Outpatient (REF) | payer BC, SELFPAY ==
[2024-03-29 08:23] LABS: MANUAL DIFF FLAG NO
[2024-03-29 08:53] LABS: Basophils Absolute Auto 0.1 X10*3/uL (0.0-0.2); Basophils Percent Auto 0.6 % (0-2); Eosinophils Absolute Auto 0.3 X10*3/uL (0.0-0.4); Eosinophils Percent Auto 2.8 % (0-4); Hematocrit 41.6 % (37.0-47.0); Imm Gran Abs Auto 0.05 X10*3/uL (0.00-0.03); Imm Gran Pct Auto 0.4 % (0.0-0.4); Lymphocytes Absolute Auto 2.4 X10*3/uL (1.2-4.9); Mean Corpuscular HGB Conc 33.7 g/dl (31.0-35.0); Mean Corpuscular Hemoglobin 28.6 pg (27.0-33.0); Mean Corpuscular Volume 84.9 fL (80.0-98.0); Mean Platelet Volume 10.8 fL (9.4-12.3); Monocytes Absolute Auto 0.7 X10*3/uL (0.1-1.2); Neutrophils Absolute Auto 8.3 x10*3/uL (2.0-8.3); Neutrophils Percent Auto 70.2 % (45-73); Platelet Count 323 X10*3/uL (160-400); Red Cell Distribution Width 12.9 % (11.0-16.0); White Blood Count 11.9 X10*3/uL (4.8-10.8)
[2024-03-29 09:17] LABS: Appearance Urine Cloudy; Color Urine Yellow; Glucose Urine UA >=1000 mg/dL (Negative); Leukocyte Esterase Urine Negative (Negative); Nitrite Urine Negative (Negative); PH 5.5 (5.0-9.0); Specific Gravity - Urine >= 1.030 (1.005-1.025); UMIC TRIGGER UACC YES; Urine Blood Negative (Negative); Urine Ketones Trace mg/dL (Negative); Urine Protein Negative (Neg-Trace)
[2024-03-29 09:26] LABS: Alanine Aminotransferase 21 U/L (0-31); Albumin Level 4.5 g/dL (3.5-5.0); Alkaline Phosphatase 172 U/L (39-117); Anion Gap 14 (12-20); Aspartate Amino Transferase 21 U/L (5-31); Bilirubin Total 0.5 mg/dL (0.0-1.0); Blood Urea Nitrogen 10 mg/dL (9-16); Calcium 9.8 mg/dL (8.4-10.2); Carbon Dioxide 24 mmol/L (22-29); Chloride 105 mmol/L (96-108); Cholesterol 205 mg/dL (<200); Estimated Glomerular Filt Rate > 60; Glucose Fasting 219 mg/dL (60-99); HDL Cholesterol 43 mg/dL (>40); LDL Cholesterol Calculated 141 mg/dL (<100); Potassium 3.8 mmol/L (3.3-5.1); Sodium 139 mmol/L (135-145); Total Protein 8.2 g/dL (6.5-8.0); Triglycerides 109 mg/dL (<150)
[2024-03-29 09:36] LABS: Bacteria Urine 1+ (None Seen); Hyaline Casts Urine 0-2 /LPF (0-2); RBC Urine 0-2 /HPF (0-2); WBC Urine 0-5 /HPF (0-5)
[2024-03-29 10:08] LABS: Microalbumin Urine < 5.0 mg/L
== END 2024-03-29 08:10 | disposition home or self-care (01) ==
LOC: HO.LAB 08:09
PROVIDERS: PCP Nurse Practitioner Family; Visit Provider Nurse Practitioner Family
DX: Z00.00 Encounter for general adult medical examination without abnormal findings (principal); E11.9 Type 2 diabetes mellitus without complications
CPT/HCPCS: 36415; 80053; 80061; 81001; 81003; 82043; 82570; 84443; 85025

== ENCOUNTER 2024-07-30 10:38 | Outpatient (AMB) | payer OTHER, SELFPAY ==
--- NOTE | 2024-07-30 11:29 | MHC.OFFWIV ---
Intake Vital Signs 07/30/24 11:35 Weight 187 lb BP 112/80 Blood Pressure Location Lt brachial Position Sitting Pulse 122 H Pulse Source Pulse Oximeter Temp 97.9 F Temp Source Oral Pulse Oximetry (%) 97 Oxygen Delivery Method Room Air Intake Visit Reasons: EP cough, congestion, flu like symptoms Intake Note: Patient here for cough, congestion,fever and body aches. pt states her son just tested positive for flu A this morning. Patient Tobacco Use Status: Never used Tobacco Allergies No Known Allergies Allergy (Verified 07/30/24 11:38) Do you need a note to return to daycare/school/sports/work: Yes HPI HPI Comments History of Present Illness Details This is a 39-year-old female with a past medical history of [id number] diabetes and hyperlipidemia presenting for evaluation of cough and sinus pressure that she has had for the past 1 day. Patient reports the onset of malaise, cough and sinus congestion yesterday followed by the development of a fever that she had both last night and this morning. Patient has taken ibuprofen for relief of her fever. Patient is 14-year-old son was diagnosed with influenza A this morning at his grinding supervisor. [facility] Medical History Diabetes Vitamin D deficiency Lumbago Anemia Trigeminal neuralgia Surgical History No pertinent past surgical history Family History Father Diabetes mellitus Mother HTN (hypertension) Fibromyalgia Maternal Grandmother Zika virus disease Alzheimer's disease Dementia Maternal Grandfather No problems noted. Paternal Grandfather No problems noted. Paternal Grandmother No problems noted. Brother No problems noted. Brother No problems noted. Son No problems noted. Son No problems noted. Family/Other Breast cancer Other Mental health disorder Substance use disorder Social History Housing: Apartment Alcohol intake: current Alcohol intake frequency: holidays/special occasions only Patient Tobacco Use Status: Never used Tobacco e-Cigarette/Vaping Use: Never Used Current occupational status: employed Current occupation: [employer], right handed. Cognitive needs: No Hearing needs: No Vision needs: No Review of Systems Const All systems reviewed & are unremarkable except as noted in HPI and below Denies chills, Reports fatigue, Reports fever(s) and Reports malaise Eyes Reports no additional complaints ENT Reports no additional complaints, Denies otalgia, Reports sinus pressure and Denies sore throat Card Reports no additional complaints, Denies chest pain and Denies dyspnea Resp Reports cough, Denies dyspnea and Denies wheezing GI Reports no additional complaints Reports no additional complaints Musc Reports no additional complaints Skin/Breast Reports system reviewed and no additional complaints, except as documented Neuro Reports no additional complaints Psych Reports no additional complaints Endo Reports no additional complaints and Reports fatigue Gil/Lymph Reports no additional complaints Aller/Immun Reports no additional complaints and Denies wheezing Physical Exam Vital Signs: Last Vital Signs Temp 97.9 F 07/30/24 11:35 Pulse 122 H 07/30/24 11:35 BP 112/80 07/30/24 11:35 Pulse Ox 97 07/30/24 11:35 Oxygen Delivery Method Room Air 07/30/24 11:35 Patient is afebrile and tachycardic. Const General: cooperative, healthy appearing, comfortable and no acute distress; No lethargic Nutritional Appearance: average body habitus Orientation/consciousness: patient oriented x3 and No lethargic Limitations: no limitations HEENT Head: Yes normal to inspection and Yes normocephalic Ears: hearing grossly normal bilaterally, external ears normal, TM's normal bilaterally and EAC's normal General nose exam: Normal external nose present Face and sinus: Yes normal facial exam and No sinus tenderness Mouth: Normal oral and palatal mucosa present and moist mucous membranes Throat: Yes posterior oropharynx normal and Yes postnasal drainage Eyes General: appearance normal, both eyes and all related structures Neck Lymphatic: no lymphadenopathy noted Resp Effort & Inspection: normal respiratory effort, able to speak in complete sentences, abnormal respiratory pattern, no audible wheezes, Actively coughing, no respiratory distress and not tachypneic Auscultation: clear to auscultation bilaterally Cardio Rate: tachycardic (Rate of 108 beats per minute) Rhythm: regular rhythm Skin General skin exam: no rashes or lesions noted Neuro General: patient oriented x3 Psych Appearance: grossly normal Mental Status: mental status grossly normal Insight: Good insight present (Psych) Judgement: Good judgement present (Psych) Assessment & Plan Assessment & Plan (1) Acute upper respiratory infection: Comment: Patient is noted to be tachycardic however she is afebrile. SARS panel is ordered and pending. Given that her son has similar symptoms and has a formal diagnosis of influenza A, she will be discharged home with Tamiflu. Code(s): J06.9 - Acute upper respiratory infection, unspecified Plan: Tamiflu b.i.d. x5 days. Orders: Orders SARS-CoV2/FLU/RSV Today J06.9 - Acute upper respiratory infection, unspecified Medications: New oseltamivir (Tamiflu) 75 mg PO BID 5 days 10 caps 0RF Coding Level of Care Code Est Pt Level 3 (85001) Diagnoses Acute upper respiratory infection J06.9 Time Spent (min) 20
[2024-07-30 11:35] VITALS: BP 112/80; PULSE 122; TEMP 36.6; O2SAT 97
== END 2024-07-30 12:05 | disposition home or self-care (01) ==
PROVIDERS: PCP Nurse Practitioner Family; Visit Provider Physician Assistant
DX: J06.9 Acute upper respiratory infection, unspecified (principal)

== ENCOUNTER 2024-07-30 13:05 | Outpatient (REF) | payer OTHER, SELFPAY ==
[2024-07-30 14:14] LABS: Influenza A PCR POSITIVE (Negative); Influenza B PCR NEGATIVE (Negative); Resp Syncy Virus RNA Qual PCR NEGATIVE (Negative); SARS COV2 PCR INHOUSE NEGATIVE (Negative)
== END 2024-07-30 13:06 | disposition home or self-care (01) ==
LOC: HO.LNP 13:05
PROVIDERS: Visit Provider Physician Assistant
DX: J06.9 Acute upper respiratory infection, unspecified (principal)
CPT/HCPCS: 0241U

== ENCOUNTER 2024-09-04 12:49 | Outpatient (REF) | payer OTHER, SELFPAY ==
[2024-09-04 17:35] LABS: Influenza A PCR NEGATIVE (Negative); Influenza B PCR NEGATIVE (Negative); Resp Syncy Virus RNA Qual PCR NEGATIVE (Negative); SARS COV2 PCR INHOUSE NEGATIVE (Negative)
== END 2024-09-04 12:50 | disposition home or self-care (01) ==
LOC: HO.LNP 12:49
PROVIDERS: PCP Nurse Practitioner Family; Visit Provider Physician Assistant
DX: J02.9 Acute pharyngitis, unspecified (principal); R51.9 Headache, unspecified; R09.81 Nasal congestion
CPT/HCPCS: 0241U; 87070; 87880

== ENCOUNTER 2024-09-04 12:49 | Outpatient (AMB) | payer OTHER, SELFPAY ==
--- NOTE | 2024-09-04 13:26 | AM.OFFWIN_ITS ---
Intake Vital Signs 09/04/24 13:33 Weight 188 lb BP 120/80 Blood Pressure Location Lt brachial Position Sitting Pulse 102 H Pulse Source Pulse Oximeter Temp 98.4 F Temp Source Oral Pulse Oximetry (%) 96 Oxygen Delivery Method Room Air Intake Visit Reasons: EP ? strep throat Intake Note: Patient here for sore throat that started yesterday. 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 Had associated sweats without documented fever Pain level is 8/10 No medicine taken + congestion slighrtly due to getting ov er the flu a week or two ago Minimal cough previously but improved She denies ear pain PFSH Medical History (Reviewed 03/26/24 @ 16:33 by Rito Conroy, [facility]) Diabetes Vitamin D deficiency Lumbago Anemia Trigeminal neuralgia Surgical History No pertinent past surgical history Family History Father Diabetes mellitus Mother HTN (hypertension) Fibromyalgia Maternal Grandmother Zika virus disease Alzheimer's disease Dementia Maternal Grandfather No problems noted. Paternal Grandfather No problems noted. Paternal Grandmother No problems noted. Brother No problems noted. Brother No problems noted. Son No problems noted. Son No problems noted. Family/Other Breast cancer Other Mental health disorder Substance use disorder Social History Housing: Apartment Alcohol intake: current Alcohol intake frequency: holidays/special occasions only Patient Tobacco Use Status: Never used Tobacco e-Cigarette/Vaping Use: Never Used Current occupational status: employed Current occupation: [employer], right handed. Cognitive needs: No Hearing needs: No Vision needs: No Review of Systems Const Denies chills, Reports fever(s) and Reports headache(s) ENT Denies dizziness, Denies otalgia, Reports headache(s), Reports nasal congestion, Denies sinus pain and Reports sore throat Card Denies chest pain Resp Denies chest congestion and Reports cough Musc Denies myalgias Neuro Denies dizziness and Reports headache(s) Physical Exam Vital Signs: Last Vital Signs Temp 98.4 F 09/04/24 13:33 Pulse 102 H 09/04/24 13:33 BP 120/80 09/04/24 13:33 Pulse Ox 96 09/04/24 13:33 Oxygen Delivery Method Room Air 09/04/24 13:33 General: Non-toxic, NAD. Speaking full sentences; handling secretions Skin: Warm dry throughout Eye: EOMI HENT: Airway patent. Uvula midline. + pharyngeal erythema without exudates or significant edema. No BEHAVIORAL SPECIALIST. Bilateral canals clear. TM non-erythematous, non-bulging. No TM perforation or hemotympanum noted. Lymph: + L tonsillar LN enlargment and ttp. Respiratory: CTA bilaterally. No wheezes, rales or rhonchi Cardiac: RRR. No murmur Neurology: Alert. No aphasia or facial droop. Gait without abnormality Psych: Good mood and affect Assessment & Plan Assessment & Plan (1) Pharyngitis: Code(s): J02.9 - Acute pharyngitis, unspecified Qualifiers: Pharyngitis/tonsillitis etiology: unspecified etiology Qualified Code(s): J02.9 - Acute pharyngitis, unspecified Plan: Patient seen and evaluated. Strep negative culture sent COVID/flu/rsv ordered and sent Discussed fluids and OTC pain control Refused work note Patient gave verbal understanding and had no additional questions or concerns at time of discharge All questions answered Orders: Orders SARS-CoV2/FLU/RSV Today J02.9 - Acute pharyngitis, unspecified Throat Culture Today J02.9 - Acute pharyngitis, unspecified Coding Level of Care Code Est Pt Level 3 (45798) Diagnoses Pharyngitis, unspecified etiology J02.9 Pharyngitis/tonsillitis etiology: unspecified etiology
[2024-09-04 13:33] VITALS: BP 120/80; PULSE 102; TEMP 36.9; O2SAT 96
== END 2024-09-04 13:53 | disposition home or self-care (01) ==
PROVIDERS: PCP Nurse Practitioner Family; Visit Provider Physician Assistant
DX: Z13.9 Encounter for screening, unspecified (principal); J02.9 Acute pharyngitis, unspecified

== ENCOUNTER 2024-10-01 07:16 | Outpatient (AMB) | payer OTHER, SELFPAY ==
--- NOTE | 2024-09-26 13:17 | A.OFFVIS_ITS ---
Vital Signs 10/01/24 07:30 Height 5 ft 5 in Weight 182 lb 15.739 oz BMI 30.4 BP 100/74 Blood Pressure Location Rt brachial Position Sitting Pulse 74 Pulse Source Pulse Oximeter Pulse Oximetry (%) 96 Oxygen Delivery Method Room Air Intake Visit Reasons: Follow up diabetes Intake Note: Patient presents today for a follow-up on Type 2 Diabetes Mellitus: Last Diabetic eye exam was on: OVER DUE Last Podiatry exam was on: Patient does not see a Machine Bunch Maker Most recent HbA1c: 10.0%, 10/01/2024 Random Glucose- 216 mg/dL, Today Allergies No Known Allergies Allergy (Verified 09/04/24 13:33) HPI Comments Details: 39 YO female who is seen in f/u for T2DM. She was seen in initial consultation 03/29/2024 at which time her A1c was 11.7% due to having had stopped Ozempic. 09/26/2024 A1c 10%. She changed insurance at the beginning of the year and was not able to get Ozempic, Jardiance or freestyle Radu. She has not tested her blood sugars. She is doing much better with her diet and for the past 2 months has had no fast food, is avoiding sodas for the most part and minimizing the amount of juice that she drinks. She has been cooking healthy meals at home. She gets some exercise walking the dog. She is planning on starting to exercise at work for 15 minutes before the start of her night filler. Initially diagnosed with T2DM in 2020. Was initially started on treatment with metformin. Was able to wean off through diet. Current regimen has not taken either medication for several months Ozempic 0.50 mg weekly Jardiance 10 mg daily No low sugars. Treats lows with [1/2 cup juice]. Family history of T2DM in father who from [place]. Maternal Uncle Denies retinopathy Has eyes checked yearly, last eye exam 2 years ago [facility] [place] Has neuropathy: has been having numbness in feet, no cramping , last foot exam today in the office, does not see podiatry. On gabapentin for trigeminal neuralgia she did have numbness in arms last week after having several beers none since No nephropathy 03/2024 last urine micro 5.0 03/29/2024 EGFR> 60 Has HLD, started on statin fall 2023 Last LDL 03/29/2024 141 Denies CAD. 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 Paternal Grandfather No problems noted. Paternal Grandmother No problems noted. Brother No problems noted. Brother No problems noted. Son No problems noted. Son No problems noted. Family/Other Breast cancer Other Mental health disorder Substance use disorder Social History Housing: Apartment Alcohol intake: current Alcohol intake frequency: holidays/special occasions o nly Patient Tobacco Use Status: Never used Tobacco e-Cigarette/Vaping Use: Never Used Current occupational status: employed Current occupation: [employer], right handed. Cognitive needs: No Hearing needs: No Vision needs: No Physical Exam Vital Signs: Last Vital Signs Pulse 74 10/01/24 07:30 BP 100/74 10/01/24 07:30 Pulse Ox 96 10/01/24 07:30 Oxygen Delivery Method Room Air 10/01/24 07:30 BMI result Body Mass Index 30.4 Const Other: Absence of Cushingoid features. Absence of acromegalic features. Neck exam reveals nl size thyroid about 15 gms. No thyroid nodules palpable. Heart S1 S2, Reg R/R. No M/R G. Skin exam reveals absence of vitiligo or acanthosis nigricans. No edema Visual exam of foot performed. No ulcerations or open lesions. No inter digit maceration or fissuring. No onychomycosis, no callouses. Sensation intact to monofilament exam. Vibratory sensation is normal with 128 Hz tuning fork. Results AMB Hemoglobin A1c AMB Hemoglobin A1c 10.0 % Last Edit by AMY Luna on 10/01/24 07:4 7 Assessment & Plan Assessment & Plan (1) Diabetes: Code(s): E11.9 - Type 2 diabetes mellitus without complications Category: Medical Plan: 39-year-old type 2 diabetic with neuropathy who has been off Jardiance and Ozempic for several months. Plan is to restart her medications and freestyle Radu 2. She has made strides in both diet and exercise. The patient had an opportunity to ask questions regarding treatment plan. The patient expressed understanding and agreement with the above treatment plan. The patient is aware they should contact our office by phone for worsening glucose readings or for any low blood sugars which may warrant a change in diabetes medication. Compliance is encouraged with medications and any followup testing/consults which may have been ordered. Orders: Orders Islet Cell Antibody Scrn/Titer Today E11.9 - Type 2 diabetes mellitus without complications C Peptide Today E11.9 - Type 2 diabetes mellitus without complications AMB Hemoglobin A1c Today Z86.39 - Personal history of other endocrine, nutritional and metabolic disease Medications: Refilled empagliflozin (Jardiance) 10 mg PO DAILY 30 tabs 3RF FreeStyle Radu 2 Sensor (flash glucose sensor) TID testing 6 ea 3RF NS E11.9 - Type 2 diabetes mellitus without complications semaglutide (Ozempic) 0.5 mg (0.736 mL) subcut QWEEK 30 days 3.68 mL 6RF Patient Instructions: The patient was counseled to achieve a target A1C of 7% (154 avg). Fasting blood sugars should be 90-130 in the morning and less than 180 two hours after meals. Reviewed the relationship between poor diabetic control and the development of complications. Check your feet daily looking for any signs of infection, drainage, redness, ulceration and seek medical attention if this occurs. Break in shoes gradually and do not wear open-toed shoes or walk stocking footed or barefooted. Coding Level of Care Code Est Pt Level 4 (08836) Complex EM visit Add On G2211 Diagnoses Diabetes E11.9 Time Spent (min) 36 Comment Time spent reviewing labs/provider notes, face to face, chart doc
[2024-10-01 07:30] VITALS: BP 100/74; PULSE 74; O2SAT 96; BMI 30.4
[2024-10-01 07:40] LABS: Glucose, Whole Blood 216 mg/dL (60-115)
== END 2024-10-01 07:56 | disposition home or self-care (01) ==
LOC: HO.ENCR 07:17
PROVIDERS: PCP Nurse Practitioner Family; Visit Provider Nurse Practitioner Adult Health
DX: Z86.39 Personal history of other endocrine, nutritional and metabolic disease (principal); E11.9 Type 2 diabetes mellitus without complications
CPT/HCPCS: 99214

== ENCOUNTER → 2024-10-01 07:16 | Outpatient (BNVA) | payer OTHER, SELFPAY | PROVIDERS: PCP Nurse Practitioner Family; Visit Provider Nurse Practitioner Adult Health | DX: E11.9 Type 2 diabetes mellitus without complications (principal); Z86.39 Personal history of other endocrine, nutritional and metabolic disease; Z79.899 Other long term (current) drug therapy | CPT/HCPCS: 82947; 83036 ==

== ENCOUNTER 2025-05-23 08:05 | Outpatient (REF) | payer OTHER, SELFPAY ==
[2025-05-23 08:18] LABS: MANUAL DIFF FLAG NO
[2025-05-23 08:38] LABS: Hematocrit 38.6 % (37.0-47.0); Hemoglobin 12.9 g/dl (12.0-16.0); Imm Gran Abs Auto 0.06 X10*3/uL (0.00-0.03); Imm Gran Pct Auto 0.6 % (0.0-0.4); Lymphocytes Absolute Auto 2.5 X10*3/uL (1.2-4.9); Mean Corpuscular HGB Conc 33.4 g/dl (31.0-35.0); Mean Corpuscular Hemoglobin 28.7 pg (27.0-33.0); Mean Corpuscular Volume 85.8 fL (80.0-98.0); NRBC Abs Auto 0.000 X10*3/uL (0.0-0.012); NRBC Pct Auto 0.0 /100WBC (0.0-0.2); Platelet Count 298 X10*3/uL (160-400); Red Blood Count 4.50 X10*6/uL (4.20-5.50); White Blood Count 10.7 X10*3/uL (4.8-10.8)
[2025-05-23 08:45] LABS: Appearance Urine Cloudy; Glucose Urine UA Negative (Negative); PH 6.0 (5.0-9.0); Specific Gravity - Urine 1.025 (1.005-1.025); UMIC TRIGGER UACC YES
[2025-05-23 08:50] LABS: Hemoglobin A1C 139.0127 umol/L
[2025-05-23 08:50] LABS: UACC Culture Trigger YES
[2025-05-23 09:29] LABS: Alanine Aminotransferase 23 U/L (0-31); Albumin Level 4.6 g/dL (3.5-5.0); Alkaline Phosphatase 135 U/L (39-117); Anion Gap 12 (12-20); Aspartate Amino Transferase 26 U/L (5-31); Blood Urea Nitrogen 10 mg/dL (9-16); Calcium 9.5 mg/dL (8.4-10.2); Carbon Dioxide 25 mmol/L (22-29); Chloride 107 mmol/L (96-108); Cholesterol 221 mg/dL (<200); Estimated Glomerular Filt Rate > 60; HDL Cholesterol 51 mg/dL (>40); Potassium 4.7 mmol/L (3.3-5.1); Sodium 139 mmol/L (135-145); Total Protein 8.0 g/dL (6.5-8.0); Triglycerides 142 mg/dL (<150)
[2025-05-23 09:30] LABS: Microalbum/Creatinine Ratio Ur 7.2 ug/mg cr (<30)
== END 2025-05-23 08:06 | disposition home or self-care (01) ==
LOC: HO.LAB 08:05
PROVIDERS: PCP Nurse Practitioner Family; Visit Provider Nurse Practitioner Family
DX: E11.9 Type 2 diabetes mellitus without complications (principal)
CPT/HCPCS: 36415; 80053; 80061; 81001; 82043; 82570; 83036; 84443; 85025; 87086; 87147

== ENCOUNTER 2025-05-28 08:50 | Outpatient (AMB) | payer OTHER, SELFPAY ==
[2025-05-28 08:57] VITALS: BP 120/84; PULSE 81; RESP 16; TEMP 36.7; O2SAT 97; BMI 29.6
--- NOTE | 2025-05-28 08:57 | MHC.PC.OV ---
Vital Signs 05/28/25 08:57 Height 5 ft 5 in Weight 178 lb BMI 29.6 BP 120/84 Blood Pressure Location Rt brachial Position Sitting Respiration 16 Pulse 81 Pulse Source Pulse Oximeter Temp 98.1 F Temp Source Oral Pulse Oximetry (%) 97 Oxygen Delivery Method Room Air Intake Visit Reasons: PE Rn Cvicu Required: No Accompanied by: Self / Same As Patient Allergies No Known Allergies Allergy (Verified 05/28/25 09:41) Medication List - Last Reconciled 05/28/25 by DRAKE Rios- albuterol sulfate 90 mcg/actuation (Ventolin HFA) 1 inh inhalation QID PRN 30 days alcohol swabs 1 pad topical BID atorvastatin 10 mg PO BEDTIME blood sugar diagnostic (FreeStyle Lite Strips) 1 strip miscellaneous BID 50 days blood-glucose meter (FreeStyle Lite Meter kit) Use to check blood sugar BID:fasting blood sugar in morning and again at a random check during the day. carbamazepine mg PO cefuroxime axetil 250 mg PO BID 7 days cetirizine 10 mg PO DAILY clotrimazole-betamethasone 1-0.05 % 1 appl topical BID 1 week cyclobenzaprine 10 mg PO Q8H PRN 7 days empagliflozin (Jardiance) 10 mg PO DAILY FreeStyle Radu 2 [place] (flash glucose scanning reader) TID testing NS FreeStyle Radu 2 Sensor (flash glucose sensor) TID testing NS gabapentin 1,200 mg PO BEDTIME lancets (FreeStyle Lancets) 28 gauge topical BID 50 days valacyclovir 500 mg PO BID 7 days Tobacco use date assessed: 05/28/25 Dental Screening Dental Screen Date: 05/28/25 Did you have a dental visit in the last 12 months?: Yes Did you have a dental problem in the last 6 months where you did not have access to dental care?: No Was dental information given to patient?: Patient has dentist HPI PE HPI Details History of Present Illness The patient is a 39-year-old female presenting for a follow-up physical exam and diabetes management. She has a history of diabetes, and her most recent A1c was 7.8, showing significant improvement from a previous level of 10. She reports not taking her medications regularly in the past but has now started to do so. The patient denies any symptoms of neuropathy. The patient was emotional during the visit, citing difficult times with her ex-partner, with whom she has two children. She feels safe, denies any threatening behaviors from him, and denies any suicidal or homicidal ideation. She has a therapist and plans to follow up with them. She knows she can contact me with further questions or concerns. Recent lab work showed a slightly elevated alkaline phosphatase level. She also reports recent weight loss and is feeling well. Labs are otherwise UTD. Health Maintenance The patient is due for a Tdap vaccine and will receive it today. Social History - The patient is experiencing emotional distress due to relationship issues with her ex-partner, with whom she shares two children. - She reports feeling safe and denies any threatening behavior from her ex-partner. - She receives mental health support from a therapist and is scheduled for a follow-up appointment. Review of Systems - Constitutional: Reports recent weight loss and feeling good. - Neurologic: Denies neuropathy. - Psychiatric: Reports being in tears due to stress with her ex-partner. - She denies suicidal or homicidal ideation. Physical Exam General: Cooperative, healthy appearing, comfortable, no acute distress and well developed Orientation: Patient oriented x3 Limitations: No limitations Head: Normal to inspection Ears: Hearing grossly normal bilaterally Nose: Normal external nose present Face and sinus: Normal facial exam Eyes: Appearance normal, both eyes and all related structures Neck: Normal visual inspection and Yes full ROM Respiratory: Normal respiratory effort and able to speak in complete sentences. Clear to auscultation bilaterally Cardiovascular: Regular rate and rhythm. Normal S1 and S2 GI: Normal to inspection. Soft to palpation and nontender Skin: No rashes or lesions noted Neuro: Patient oriented x3 Extremities: Normal to inspection Results - Labs: Most recent A1c was 7.8, down from 10. - Alkaline phosphatase was slightly elevated. Plan 1. Diabetes Mellitus The patient's HbA1c has improved significantly from 10 to 7.8. She has started taking her medications regularly. No medication changes will be made at this time. The importance of an annual eye exam was reinforced, and she will follow up with endocrinology next month. 2. Elevated Alkaline Phosphatase Due to a slightly elevated alkaline phosphatase level, an isoenzyme breakdown will be ordered for further evaluation. 3. Situational Distress The patient is experiencing emotional distress due to conflict with her ex-partner. She reports feeling safe and denies any suicidal or homicidal ideations. She has a therapist and will follow up with her today for support. Discussion Notes I discussed the patient's impressive improvement in her A1c, which is down to 7.8 from 10, and acknowledged that she is now taking her medications regularly. I explained that I would not make any medication changes today and that she should proceed with her endocrinology follow-up next month. I reinforced the importance of obtaining an annual eye exam. I informed her that her alkaline phosphatase was slightly elevated and that I would order an isoenzyme breakdown for further assessment. We discussed her emotional distress, and I confirmed that she feels safe, has a therapist for support, and denies any suicidal or homicidal thoughts. I also advised her that she is due for a Tdap vaccine, which would be administered today. Patient Instructions - Continue to take your diabetes medication regularly as you have started doing. - Make sure to keep your appointment with the endocrinology (clerical support specialist) team next month. - It is important to have an eye exam once a year because of your diabetes. - You will get a Tdap (tetanus, diphtheria, and whooping cough) vaccine booster shot today. - Please follow up with your therapist today for emotional support. - We are ordering another blood test to get more information on your slightly elevated alkaline phosphatase lab result. [facility] Medical History Diabetes Vitamin D deficiency Lumbago Anemia Trigeminal neuralgia Surgical History No pertinent past surgical history Family History Father Diabetes mellitus Mother HTN (hypertension) Fibromyalgia Maternal Grandmother Zika virus disease Alzheimer's disease Dementia Maternal Grandfather No problems noted. Paternal Grandfather No problems noted. Paternal Grandmother No problems noted. Brother No problems noted. Brother No problems noted. Son No problems noted. Son No problems noted. 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 Cognitive needs: No Hearing needs: No Vision needs: No Questionnaire PHQ-9 Over the last 2 weeks, how often have you been bothered by any of the following problems? 1. Little interest or pleasure in doing things: nearly every day 2. Feeling down, depressed, or hopeless: nearly every day 3. Trouble falling or staying asleep, or sleeping too much: more than half the days 4. Feeling tired or having little energy: nearly every day 5. Poor appetite or overeating: more than half the days 6. Feeling bad about yourself - or that you are a failure or have let yourself or your family down: more than half the days 7. Trouble concentrating on things, such as reading the newspaper or watching television: nearly every day 8. Moving or speaking so slowly that other people could have noticed. Or the opposite - being so fidgety or restless that you have been moving around a lot more than usual: not at all 9. Thoughts that you would be better off or of hurting yourself in some way: not at all Total score: 18 Depression Screening Interpretation: Positive (denies any si or hi) Depression Screening Follow-up: Existing condition Depression Screening Done: Yes 96072 - PHQ-9 Billing: Yes Source: Developed by Drs. Antonio Avalos, Brit Mejia, Erickson Carroll and colleagues, with an educational andria from [employer]. Thrive Questionnaire Date Thrive assessed: 03/23/24 I am a: Patient What is your living situation today?: I have a steady place to live Within the past 12 months, did the food you bought not last and you didn't have the money to get more?: Sometimes True Within the past 12 months, did you worry whether your food would run out before you got money to buy more?: Sometimes True Do you have trouble paying for medicines?: No Do you have trouble getting transportation to medical appointments?: No Do you have trouble paying your heating and electricity bill?: No Do you have trouble taking care of your child, family member or friend?: No Do you have trouble with day-to-day activities such as bathing, preparing meals, shopping, managing finances, etc.?: No Are you currently unemployed and looking for a job?: No Are you interested in more education?: Yes Please select the resources that you would like help with: None Currently or been in a relationship where the following occur: No concerns reported THRIVE Score: 2 REMY-7 AMB Questionnaire REMY-7 Date REMY - 7 assessed: 05/28/25 Feeling nervous, anxious, or on edge: 3 = Nearly every day Not being able to stop or control worryin = Nearly every day Worrying too much about different things: 3 = Nearly every day Trouble relaxin = More than half the days Being so restless that it is hard to sit still: 2 = More than half the days Becoming easily annoyed or irritable: 3 = Nearly every day Feeling afraid as if something awful might happen: 1 = Several days Total REYM-7 score (0-4 normal; 5-9 mild; 10-14 moderate; 15-21 severe): 17 Source: Developed by Drs. Antonio Avalos, Brit Mejia, Erickson Carroll and colleagues, with an educational andria from [employer]. REMY-7 Assessment Billing REMY-7 Assessment Tool: REMY-7 Assessment 93178 Physical exam (Primary Care) Vital Signs: Last Vital Signs Temp 98.1 F 05/28/25 08:57 Pulse 81 05/28/25 08:57 Resp 16 05/28/25 08:57 BP 120/84 05/28/25 08:57 Pulse Ox 97 05/28/25 08:57 Oxygen Delivery Method Room Air 05/28/25 08:57 BMI result Body Mass Index 29.6 Tobacco/Smoking Status: Tobacco use Status Tobacco use date assessed 05/28/25 05/28/25 09:07 Patient Tobacco Use Status Never used Tobacco 05/28/25 09:07 e-Cigarette/Vaping Use Never Used 05/28/25 09:07 PHQ-9: PHQ-9 Score PHQ-9: Total score 18 05/28/25 09:07 Depression Screening Interpretation: Positive (denies any si or hi) Depression Screening Follow-up: Existing condition Thrive Assessment: Date of Thrive Assessment Date Thrive assessed 03/23/24 05/28/25 09:07 Currently or been in a relationship where the following occur: No concerns reported Immunizations Boostrix Tdap 2.5 Lf unit-8 mcg-5 Lf/0.5 mL intramuscular syringe Performing Provider: YING Rios Performing Location: [facility] Administered by: Jessica Joy MA on 05/28/25 09:40 Dose Route Admin Location Dispensed Lot Number Expiration Date NDC Manager [employer] 0.5 mL IM Left Deltoid 0.5 mL [id number] 05/09/27 72824-068-60 [employer] (f. [employer]) Total Dispensed Waste 0.5 mL 0 % VIS Given Date VIS Provided VIS Publication Date 05/28/25 Single Vaccine 25 Eligibility Eligibility Date Funding Source Not [facility] Eligible 05/28/25 Private Coding Level of Care Code Est Pt Level 3 (59883) Est Pt Prev Care 18-39y(80953) Diagnoses Diabetes E11.9 Stress at home F43.9 Physical exam Z00.00 Additional Codes REMY-7 Assessment Billing - REMY-7 Assessment Tool: REMY-7 Assessment 69076 ([id number]) PHQ-9 - 40752 - PHQ-9 Billing: Yes ([id number]) Assessment & Plan Assessment & Plan (1) Diabetes: Code(s): E11.9 - Type 2 diabetes mellitus without complications Category: Medical (2) Stress at home: Code(s): F43.9 - Reaction to severe stress, unspecified Category: Social Hx (3) Physical exam: Code(s): Z00.00 - Encounter for general adult medical examination without abnormal findings Category: Medical Plan . Orders: Orders TDaP Immunization Today Z23 - Encounter for immunization
== END 2025-05-28 09:58 | disposition home or self-care (01) ==
LOC: HO.HMCC 08:51
PROVIDERS: PCP Nurse Practitioner Family; Visit Provider Nurse Practitioner Family
DX: Z00.00 Encounter for general adult medical examination without abnormal findings (principal); E11.9 Type 2 diabetes mellitus without complications; F43.9 Reaction to severe stress, unspecified; Z23 Encounter for immunization

== ENCOUNTER → 2025-05-28 08:50 | Outpatient (BNVA) | payer OTHER, SELFPAY | PROVIDERS: PCP Nurse Practitioner Family; Visit Provider Nurse Practitioner Family | DX: Z00.00 Encounter for general adult medical examination without abnormal findings (principal); E11.9 Type 2 diabetes mellitus without complications; F43.9 Reaction to severe stress, unspecified; Z79.899 Other long term (current) drug therapy | CPT/HCPCS: 90471; 90715; 96127 ==

== ENCOUNTER 2025-07-16 14:57 | Outpatient (AMB) | payer OTHER, SELFPAY ==
[2025-07-16 15:00] VITALS: BP 116/80; PULSE 75; O2SAT 97
--- NOTE | 2025-07-16 15:00 | A.OFFVIS_ITS ---
Vital Signs 07/16/25 15:00 Weight 185 lb 3.013 oz BP 116/80 Blood Pressure Location Lt brachial Position Sitting Pulse 75 Pulse Source Pulse Oximeter Pulse Oximetry (%) 97 Oxygen Delivery Method Room Air Intake Visit Reasons: DM Intake Note: Patient presents today for a follow-up on Type 2 Diabetes Mellitus: Patient was last seen by Sveta Hartmann NP. Last Diabetic eye exam was on: Last exam was 2 years ago but has an upcoming appt. 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 carbamazepine mg PO cefuroxime axetil 250 mg PO BID 7 days cetirizine 10 mg PO DAILY clotrimazole-betamethasone 1-0.05 % 1 appl topical BID 1 week cyclobenzaprine 10 mg PO Q8H PRN 7 days empagliflozin (Jardiance) 25 mg PO DAILY FreeStyle Radu 2 [place] (flash glucose scanning reader) TID testing NS FreeStyle Radu 2 Sensor (flash glucose sensor) QID testing NS gabapentin 1,200 mg PO BEDTIME lancets (FreeStyle Lancets) 28 gauge topical QID 30 days semaglutide (Ozempic) 0.25 mg (0.368 mL) subcut QWEEK valacyclovir 500 mg PO BID 7 days HPI Comments Details: 40 YO female who is seen in f/u for T2DM. She was seen in initial consultation 03/29/2024 at which time her A1c was 11.7% due to having had stopped Ozempic. 09/26/2024 A1c 10%. She changed insurance at the beginning of the year and was not able to get Ozempic, Jardiance or freestyle Radu. She has not tested her blood sugars. Last seen by Sveta Hartmann NP on September 26, 2024. This is my 1st time seeing this patient. Initially diagnosed with T2DM in 2020. Previous medications Tried Metformin in the past but she did not tolerated it Current regimen has not taken either medication for several months Jardiance 10 mg daily No low sugars. Treats lows with [1/2 cup juice]. Family history of T2DM in father who from [place]. Maternal Uncle Denies retinopathy Has eyes checked yearly, last eye exam 2 years ago [facility] Has neuropathy: has been having numbness in feet, no cramping , last foot exam today in the office, does not see podiatry. On gabapentin for trigeminal neuralgia she did have numbness in arms last week after having several beers none since No nephropathy 03/2024 last urine micro 5.0 03/29/2024 EGFR> 60 Has HLD, started on statin fall 2023 Last LDL 03/29/2024 141 Denies CAD. 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 Reports a history of type 2 diabetes. Previously prescribed Jardiance 10 mg, which was taken intermittently. Also prescribed Semaglutide (Ozempic), but never started due to insurance issues and subsequent changes in insurance coverage. A trial of metformin was discontinued after two to three months due to persistent diarrhea. Reports a recent weight gain of approximately 7 pounds since May, attributed to a recent vacation at home where they were cooking and eating more, including lasagna and banana bread. Appetite is reported as decreased compared to baseline, though acknowledges a preference for sweets like cookies. Reports attempting to exercise but finds it difficult to fit into their schedule, which recently changed from night shifts to day shifts about six months ago. Has a gym membership but has not been using it consistently. Reports no tingling or numbness in the feet currently, though notes this was present in the beginning of their illness. Current medications include Jardiance 10 mg, taken intermittently. Has a prescription for atorvastatin 10 mg but reports not taking it. 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 Recently switched from night shifts to day shifts in December. Has children who play sports. Reports being [place] by nationality. No known allergies. Physical exam: General: Well appearing. NAD. Neck/Thyroid: Thyroid not palpable, no nodules. CV: RRR, no murmur. No edema. Resp:Lungs clear to auscultation bilaterally Abdomen: Soft, nontender. nondistended Extremities/Neuro: No weakness or tremor of outstretched hands Diabetic Foot Exam: Normal sensation to monofilament exam Laboratory Tests 05/23/25 08:16 Creatinine 0.62 Estimated GFR > 60 Hemoglobin A1c % 7.8 H AST 26 ALT 23 Alkaline Phosphatase 135 H Triglycerides 142 Cholesterol 221 H LDL Cholesterol, Calc 142 H HDL Cholesterol 51 TSH 1.60 Laboratory Tests 05/23/25 08:13 Microalb/Creat Ratio 7.2 PFSH Medical History Diabetes Vitamin D deficiency Lumbago Anemia Trigeminal neuralgia Surgical History No pertinent past surgical history Family History Father Diabetes mellitus Mother HTN (hypertension) Fibromyalgia Maternal Grandmother Zika virus disease Alzheimer's disease Dementia Maternal Grandfather No problems noted. Paternal Grandfather No problems noted. Paternal Grandmother No problems noted. Brother No problems noted. Brother No problems noted. Son No problems noted. Son No problems noted. 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 Cognitive needs: No Hearing needs: No Vision needs: No Physical Exam Const Other: Absence of Cushingoid features. Absence of acromegalic features. Neck exam reveals nl size thyroid about 15 gms. No thyroid nodules palpable. Heart S1 S2, Reg R/R. No M/R G. Skin exam reveals absence of vitiligo or acanthosis nigricans. No edema Visual exam of foot performed. No ulcerations or open lesions. No inter digit maceration or fissuring. No onychomycosis, no callouses. Sensation intact to monofilament exam. Vibratory sensation is normal with 128 Hz tuning fork. Assessment & Plan Assessment & Plan (1) Diabetes: Code(s): E11.9 - Type 2 diabetes mellitus without complications Category: Medical Qualifiers: Diabetes mellitus type: type 2 Diabetes mellitus mcc insulin use: without termite control representative use Diabetes mellitus complication status: with hyperglycemia Qualified Code(s): E11.65 - Type 2 diabetes mellitus with hyperglycemia Plan: 39-year-old type 2 diabetic with neuropathy who has been off Jardiance and Ozempic for several months. Plan is to restart her medications and freestyle Radu 2. - The current HbA1c of 7.8% indicates suboptimal glycemic control, particularly given the lack of medication adherence. The absence of significant proteinuria and good peripheral pulses are positive prognostic indicators, suggesting no significant microvascular or macrovascular complications at present. The primary goal is to improve glycemic control to reduce the risk of long-term complications. - Investigations planned: - Will provide a prescription for blood glucose test strips (90-day supply) to be sent to the hospital pharmacy. - Medical treatment plan: - Start Ozempic (semaglutide) 0.25 mg subcutaneously once weekly for four weeks as a trial dose to assess for adverse effects. If tolerated, the dose will be increased after four weeks. - Increase Jardiance (empagliflozin) from 10 mg to 25 mg daily. - Lifestyle modifications advised: - Counseled on the importance of diet modification, specifically reducing intake of simple carbohydrates. - Advised to increase physical activity and utilize their gym membership. - Follow-up plan: - Follow-up appointment scheduled in three months to review progress, check LDL levels, and assess medication tolerance and efficacy. - Referrals made: - Has an upcoming appointment with an assistant professor of anthropology in July for a diabetic eye exam. - Recommended seeing a cooker sulfite for routine foot care. 2. Hyperlipidemia - Assessment including diagnosis or working diagnosis and justification based on symptoms, examination, and investigations: The LDL level is elevated at 142. Given the diagnosis of diabetes, statin therapy is indicated for primary prevention of cardiovascular disease. - Medical treatment plan: - Recommended restarting atorvastatin, increasing the dose from 10 mg to a moderate-intensity dose of 20-30 mg daily. The goal is to achieve an LDL level below 70 mg/dL. - Follow-up plan: - Will recheck LDL level in three months after initiating statin therapy. 3. Elevated Liver Fibrosis Risk - FIB-4 Index = 0.63- Low risk for advanced fibrosis. Routine follow-up; repeat testing in 1?2 years - Assessment including diagnosis or working diagnosis and justification based on symptoms, examination, and investigations: The risk of non-alcoholic fatty liver disease (NAFLD) is increased due to elevated cholesterol and being overweight. - No immediate intervention is required beyond lifestyle modifications aimed at weight loss and improved glycemic control, which will also help lower cholesterol levels and reduce liver fibrosis risk. - Follow-up plan: - Annual screening for liver fibrosis will be performed. Additional Notes: - Patient education provided regarding disease understanding, treatment goals, medication adherence, and recognition of warning signs or complications: Extensive counseling was provided on the importance of medication adherence for glycemic control and cardiovascular risk reduction. Discussed the rationale for starting Ozempic, including its mechanism of action and potential side effects with each dose titration. Explained that the initial 0.25 mg dose is for tolerance assessment before therapeutic benefits begin at higher doses (e.g., 0.5 mg). Discussed the importance of diet and exercise in managing diabetes and hyperlipidemia. Explained the rationale for statin therapy in diabetic patients for cardiovascular risk reduction and the target LDL goal. Explained the concept of liver fibrosis risk associated with elevated cholesterol and weight, emphasizing that improved glycemic control and weight management will help mitigate this risk. - Instructions for symptom monitoring such as home glucose checks, blood pressure logs, temperature tracking, weight monitoring, or medication diaries: - Instructed to perform fingerstick blood glucose monitoring at least four times per day for the first two weeks after starting Ozempic to monitor for hypoglycemia and assess initial response. - After two weeks, can reduce monitoring to twice daily. - Any patient or family concerns addressed including fertility, sexual health, body image, psychological impact, or long-term prognosis: Addressed concerns regarding medication costs and insurance coverage by sending prescriptions to the hospital pharmacy for convenience and ensuring coverage through their hospital-based insurance plan. Addressed concerns about attending appointments by scheduling a follow-up (2) Hyperlipemia: Code(s): E78.5 - Hyperlipidemia, unspecified Category: Medical Qualifiers: Hyperlipidemia type: unspecified Qualified Code(s): E78.5 - Hyperlipidemia, unspecified Plan 65 minutes spent reviewing previous records, labs, imaging, education and documenting in the chart Orders: Orders HCG Quantitative Today E11.9 - Type 2 diabetes mellitus without complications Medications: New empagliflozin (Jardiance) 25 mg PO DAILY 30 tabs 3RF semaglutide (Ozempic) for 4 weeks 0.25 mg (0.368 mL) subcut QWEEK 3 mL 2RF Changed From FreeStyle Radu 2 Sensor (flash glucose sensor) TID testing 6 ea 3RF NS E11.9 - Type 2 diabetes mellitus without complications To FreeStyle Radu 2 Sensor (flash glucose sensor) QID testing 6 ea 3RF NS E11.9 - Type 2 diabetes mellitus without complications From lancets (FreeStyle Lancets) 28 gauge topical BID 50 days 100 caps 1RF for diabetes mellitus E11.9 - Type 2 diabetes mellitus without complications To lancets (FreeStyle Lancets) To check BG 4 times per day 28 gauge topical QID 100 caps 4RF for diabetes mellitus 30 days E11.9 - Type 2 diabetes mellitus without complications From blood sugar diagnostic (FreeStyle Lite Strips) 1 strip miscellaneous BID 50 days 100 strips 2RF for diabetes mellitus E11.9 - Type 2 diabetes mellitus without complications To blood sugar diagnostic (FreeStyle Lite Strips) as directed to check BG 4 times a day 100 strips 3RF for diabetes mellitus 30 days E11.9 - Type 2 diabetes mellitus without complications Refilled blood-glucose meter (FreeStyle Lite Meter kit) Use to check blood sugar BID:fasting blood sugar in morning and again at a random check during the day. 1 ea 0RF E11.9 - Type 2 diabetes mellitus without complications Discontinued empagliflozin (Jardiance) Discontinued Reason: Doctor's Order 10 mg PO DAILY 30 tabs 3RF Coding Level of Care Code Est Pt Level 5 (73611) Add On Problem Visit Only Diagnoses Type 2 diabetes mellitus with hyperglycemia, without long-term current use of insulin E11.65 Diabetes mellitus type: type 2 Diabetes mellitus mcc insulin use: without termite control representative use Diabetes mellitus complication status: with hyperglycemia Hyperlipidemia, unspecified hyperlipidemia type E78.5 Hyperlipidemia type: unspecified
[2025-07-16 15:14] LABS: Glucose, Whole Blood 372 mg/dL (60-115)
== END 2025-07-16 15:58 | disposition home or self-care (01) ==
LOC: HO.ENCR 14:58
PROVIDERS: PCP Nurse Practitioner Family; Visit Provider Student in an Organized Health Care Education/Training Program
DX: E11.65 Type 2 diabetes mellitus with hyperglycemia (principal); E78.5 Hyperlipidemia, unspecified
CPT/HCPCS: 99215; 99417

== ENCOUNTER → 2025-07-16 14:57 | Outpatient (BNVA) | payer OTHER, SELFPAY | PROVIDERS: PCP Nurse Practitioner Family; Visit Provider Student in an Organized Health Care Education/Training Program | DX: E11.65 Type 2 diabetes mellitus with hyperglycemia (principal); Z79.84 Long term (current) use of oral hypoglycemic drugs; E78.5 Hyperlipidemia, unspecified; E66.3 Overweight; Z79.899 Other long term (current) drug therapy | CPT/HCPCS: 82947 ==